=== PATIENT | female | born 1980 | race Caucasian/White ===

== ENCOUNTER 2021-02-07 07:33 | Outpatient (REF) | payer OTHER, SELFPAY ==
[2021-02-07 11:20] LABS: MANUAL DIFF FLAG NO
[2021-02-07 11:27] LABS: Basophils Percent Auto 0.5 % (0-2); Eosinophils Absolute Auto 0.1 X10*3/uL (0.0-0.4); Eosinophils Percent Auto 1.4 % (0-4); Hematocrit 42.2 % (37-47); Hemoglobin 13.8 g/dl (12.0-16.0); Imm Gran Abs Auto 0.02 X10*3/uL (0.00-0.03); Imm Gran Pct Auto 0.3 % (0.0-0.4); Lymphocytes Absolute Auto 1.9 X10*3/uL (1.2-4.9); Lymphocytes Percent Auto 23.7 % (20-40); Mean Corpuscular HGB Conc 32.7 g/dl (31.0-35.0); Mean Corpuscular Hemoglobin 30.2 pg (27.0-33.0); Mean Corpuscular Volume 92.3 fL (80-98); Mean Platelet Volume 10.5 fL (9.4-12.3); Monocytes Absolute Auto 0.5 X10*3/uL (0.1-1.2); Monocytes Percent Auto 6.5 % (2-11); Neutrophils Absolute Auto 5.3 X10*3/uL (2.0-8.3); Neutrophils Percent Auto 67.6 % (45-73); Platelet Count 243 X10*3/uL (160-400); Red Blood Count 4.57 X10*6/uL (4.20-5.50); Red Cell Distribution Width 12.4 % (11.0-16.0); White Blood Count 7.8 X10*3/uL (4.8-10.8)
[2021-02-07 11:52] LABS: Alanine Aminotransferase 13 U/L (0-31); Albumin Level 4.1 g/dL (3.5-5.0); Alkaline Phosphatase 93 U/L (39-117); Anion Gap 12 (12-20); Aspartate Amino Transferase 15 U/L (5-31); Blood Urea Nitrogen 13 mg/dL (9-16); Calcium 8.5 mg/dL (8.4-10.2); Carbon Dioxide 28 mmol/L (22-29); Chloride 106 mmol/L (96-108); Estimated Glomerular Filt Rate > 60; Glucose Random 100 mg/dL (60-115); Sodium 142 mmol/L (135-145); Total Protein 6.7 g/dL (6.5-8.0)
[2021-02-07 12:01] LABS: TSH reflex Free T4 1.59 uIU/mL (0.32-4.0)
[2021-02-07 12:10] LABS: Vitamin B12 335 pg/mL (200-900)
[2021-02-07 12:14] LABS: Bilirubin Total 0.4 mg/dL (0.0-1.0)
[2021-02-09 08:02] LABS: SARS COV2 IgG Positive (Negative)
[2021-02-11 12:07] LABS: Vitamin D 25-OH, D2 <4 ng/mL; Vitamin D 25-OH, D3 32 ng/mL; Vitamin D 25-OH, Total 32 ng/mL (30-100)
== END 2021-02-07 07:34 | disposition home or self-care (01) ==
LOC: HO.HMGCLDS 07:33
PROVIDERS: PCP Internal Medicine; Visit Provider Internal Medicine
DX: G89.29 Other chronic pain (principal); M54.5 Low back pain; F33.9 Major depressive disorder, recurrent, unspecified; F41.1 Generalized anxiety disorder; R53.83 Other fatigue; R14.0 Abdominal distension (gaseous); R43.9 Unspecified disturbances of smell and taste; Z01.84 Encounter for antibody response examination
CPT/HCPCS: 36415; 80053; 82306; 82607; 84443; 85025; 86769

== ENCOUNTER 2021-03-19 13:13 | Outpatient (REF) | payer OTHER, SELFPAY ==
[2021-03-19 14:35] LABS: T4 Thyroxine 7.7 ug/dL (4.5-12.0); Thyroid Stimulating Hormone 1.54 uIU/mL (0.32-4.0)
[2021-03-19 14:50] LABS: Erythrocyte Sedimentation Rate 7 MM/HR (0-20)
[2021-03-19 15:01] LABS: Folate 14.7 ng/mL (> or = 4.0); Vitamin B12 367 pg/mL (200-900)
[2021-03-20 08:57] LABS: Lyme Abs Screen <0.90 index
== END 2021-03-19 13:14 | disposition home or self-care (01) ==
LOC: HO.LAB 13:13
PROVIDERS: PCP Internal Medicine; Visit Provider Psychiatry & Neurology Neurology
DX: R41.3 Other amnesia (principal)
CPT/HCPCS: 36415; 82607; 82746; 84436; 84443; 85652; 86617; 86618

== ENCOUNTER 2021-03-26 18:57 | Outpatient (REF) | payer OTHER, SELFPAY ==
--- NOTE | ~2021-03-26 | MR_ITS ---
EXAMINATION: MRI OF THE BRAIN WITHOUT CONTRAST CLINICAL INFORMATION: Memory loss. COMPARISON: No prior studies available for comparison. TECHNIQUE: MRI of the brain was obtained using routine sequences without contrast. FINDINGS: No diffusion abnormalities are identified to suggest an acute or subacute infarct. No mass effect or midline shift is seen. The ventricles are normal in size. Brain parenchymal signal is unremarkable. No extra-axial fluid collections are seen. The brainstem and cerebellum are normal; the position and contour of the pituitary tonsils are normal. No pathologic magnetic susceptibility artifact is identified on the gradient refocused acquisition. The craniovertebral junction and marrow signal are normal. There is a partially empty sella. The major intracranial flow-voids at the level of the [place] are preserved. The dural venous sinus flow-voids are maintained. The mastoid air cells are well-aerated. There is mild mucoperiosteal thickening in the inferior left maxillary and bilateral anterior ethmoid sinuses. MR/MR head/brain wo con IMPRESSION: 1. There are no acute lesions or infarcts. No masses are demonstrated. Brain parenchymal signal is unremarkable.
== END 2021-03-26 18:58 | disposition home or self-care (01) ==
LOC: HO.MRI 18:57
PROVIDERS: Visit Provider Psychiatry & Neurology Neurology
DX: R41.3 Other amnesia (principal)
CPT/HCPCS: 70551

== ENCOUNTER 2022-01-17 13:24 | Outpatient (REF) | payer OTHER, SELFPAY ==
[2022-01-17 15:15] LABS: MANUAL DIFF FLAG NO
[2022-01-17 15:20] LABS: Basophils Percent Auto 0.5 % (0-2); Eosinophils Absolute Auto 0.1 X10*3/uL (0.0-0.4); Eosinophils Percent Auto 1.2 % (0-4); Hematocrit 41.7 % (37.0-47.0); Hemoglobin 13.8 g/dl (12.0-16.0); Imm Gran Abs Auto 0.03 X10*3/uL (0.00-0.03); Imm Gran Pct Auto 0.4 % (0.0-0.4); Lymphocytes Absolute Auto 1.6 X10*3/uL (1.2-4.9); Lymphocytes Percent Auto 21.4 % (20-40); Mean Corpuscular HGB Conc 33.1 g/dl (31.0-35.0); Mean Corpuscular Hemoglobin 30.3 pg (27.0-33.0); Mean Corpuscular Volume 91.4 fL (80.0-98.0); Mean Platelet Volume 9.9 fL (9.4-12.3); Monocytes Absolute Auto 0.5 X10*3/uL (0.1-1.2); Neutrophils Absolute Auto 5.3 x10*3/uL (2.0-8.3); Neutrophils Percent Auto 69.5 % (45-73); Platelet Count 315 X10*3/uL (160-400); Red Blood Count 4.56 X10*6/uL (4.20-5.50); Red Cell Distribution Width 12.8 % (11.0-16.0); White Blood Count 7.6 X10*3/uL (4.8-10.8)
[2022-01-17 15:36] LABS: Alanine Aminotransferase 17 U/L (0-31); Alkaline Phosphatase 96 U/L (39-117); Anion Gap 13 (12-20); Aspartate Amino Transferase 14 U/L (5-31); Bilirubin Total 0.4 mg/dL (0.0-1.0); Blood Urea Nitrogen 11 mg/dL (9-16); Calcium 8.9 mg/dL (8.4-10.2); Carbon Dioxide 26 mmol/L (22-29); Chloride 106 mmol/L (96-108); Estimated Glomerular Filt Rate > 60; Glucose Random 84 mg/dL (60-115); Potassium 4.5 mmol/L (3.3-5.1); Sodium 140 mmol/L (135-145); Total Protein 6.8 g/dL (6.5-8.0)
[2022-01-17 15:57] LABS: TSH reflex Free T4 1.58 uIU/mL (0.32-4.0)
[2022-01-19 12:16] LABS: LDL Cholesterol Direct 90 mg/dL (<100)
== END 2022-01-17 13:25 | disposition home or self-care (01) ==
LOC: HO.HMGCLDS 13:24
PROVIDERS: PCP Internal Medicine; Visit Provider Internal Medicine
DX: F41.1 Generalized anxiety disorder (principal); F33.9 Major depressive disorder, recurrent, unspecified; G89.29 Other chronic pain; M54.50 Low back pain, unspecified; Z91.09 Other allergy status, other than to drugs and biological substances
CPT/HCPCS: 36415; 80053; 83721; 84443; 85025

== ENCOUNTER 2022-08-12 12:15 | Outpatient (REF) | payer OTHER, SELFPAY ==
[2022-08-12 14:54] LABS: Influenza A PCR NEGATIVE (Negative); Influenza B PCR NEGATIVE (Negative); Resp Syncy Virus RNA Qual PCR NEGATIVE (Negative); SARS COV2 PCR INHOUSE NEGATIVE (Negative)
== END 2022-08-12 12:16 | disposition home or self-care (01) ==
LOC: HO.LAB 12:15
PROVIDERS: Visit Provider Nurse Practitioner Family
DX: Z20.822 Contact with and (suspected) exposure to COVID-19 (principal); R52 Pain, unspecified; R50.9 Fever, unspecified
CPT/HCPCS: 0241U

== ENCOUNTER 2023-04-14 09:54 | Outpatient (REF) | payer OTHER, SELFPAY ==
[2023-04-14 11:14] LABS: MANUAL DIFF FLAG NO
[2023-04-14 11:21] LABS: Basophils Percent Auto 0.4 % (0-2); Eosinophils Absolute Auto 0.1 X10*3/uL (0.0-0.4); Eosinophils Percent Auto 1.4 % (0-4); Hematocrit 44.2 % (37.0-47.0); Hemoglobin 14.6 g/dl (12.0-16.0); Imm Gran Abs Auto 0.02 X10*3/uL (0.00-0.03); Imm Gran Pct Auto 0.2 % (0.0-0.4); Lymphocytes Absolute Auto 1.9 X10*3/uL (1.2-4.9); Lymphocytes Percent Auto 23.1 % (20-40); Mean Corpuscular Hemoglobin 29.7 pg (27.0-33.0); Mean Platelet Volume 10.1 fL (9.4-12.3); Monocytes Absolute Auto 0.5 X10*3/uL (0.1-1.2); Monocytes Percent Auto 5.5 % (2-11); Neutrophils Absolute Auto 5.8 x10*3/uL (2.0-8.3); Neutrophils Percent Auto 69.4 % (45-73); Platelet Count 322 X10*3/uL (160-400); Red Blood Count 4.91 X10*6/uL (4.20-5.50); Red Cell Distribution Width 12.7 % (11.0-16.0); White Blood Count 8.4 X10*3/uL (4.8-10.8)
[2023-04-14 12:05] LABS: Alanine Aminotransferase 19 U/L (0-31); Albumin Level 4.2 g/dL (3.5-5.0); Alkaline Phosphatase 99 U/L (39-117); Anion Gap 14 (12-20); Aspartate Amino Transferase 16 U/L (5-31); Bilirubin Total 0.5 mg/dL (0.0-1.0); Blood Urea Nitrogen 11 mg/dL (9-16); Calcium 9.5 mg/dL (8.4-10.2); Carbon Dioxide 28 mmol/L (22-29); Chloride 106 mmol/L (96-108); Cholesterol 147 mg/dL; Estimated Glomerular Filt Rate > 60; Glucose Fasting 84 mg/dL (60-99); HDL Cholesterol 43 mg/dL; LDL Cholesterol Calculated 87 mg/dl; Potassium 4.2 mmol/L (3.3-5.1); Sodium 144 mmol/L (135-145); Total Protein 7.3 g/dL (6.5-8.0); Triglycerides 89 mg/dL
[2023-04-19 15:13] LABS: Vitamin D 25-OH, D2 <4 ng/mL; Vitamin D 25-OH, D3 32 ng/mL; Vitamin D 25-OH, Total 32 ng/mL (30-100)
== END 2023-04-14 09:55 | disposition home or self-care (01) ==
LOC: HO.HMGCLDS 09:54
PROVIDERS: PCP Internal Medicine; Visit Provider Internal Medicine
DX: E66.09 Other obesity due to excess calories (principal); F33.9 Major depressive disorder, recurrent, unspecified; F41.1 Generalized anxiety disorder; M54.50 Low back pain, unspecified; G89.29 Other chronic pain; M79.7 Fibromyalgia; Z91.09 Other allergy status, other than to drugs and biological substances
CPT/HCPCS: 36415; 80053; 80061; 82306; 85025

== ENCOUNTER 2023-08-25 15:34 | Outpatient (AMB) | payer OTHER, SELFPAY ==
[2023-08-25 15:38] VITALS: BP 150/88; PULSE 80; O2SAT 98; BMI 34.9
--- NOTE | 2023-08-25 15:38 | MHC.PC.OV ---
Vital Signs 08/25/23 15:38 Height 5 ft 5 in Weight 210 lb BMI 34.9 BP 150/88 H Blood Pressure Location Rt brachial Position Sitting Pulse 80 Pulse Source Pulse Oximeter Pulse Oximetry (%) 98 Oxygen Delivery Method Room Air Intake Visit Reasons: 4 Month follow up ( Labs) Allergies No Known Allergies Allergy (Verified 08/25/23 15:39) Medication List - Last Reconciled 08/25/23 by Carter Roblero MD amitriptyline 25 mg PO DAILY bupropion HCl 150 mg PO QAM 90 days buspirone 5 mg PO TID PRN 90 days cyclobenzaprine 5 mg PO BEDTIME escitalopram oxalate 20 mg PO DAILY 90 days glycopyrrolate 1 - 2 mg PO Q8H PRN loratadine (Claritin) 10 mg PO DAILY PRN multivitamin (Daily Multi-Vitamin tablet) 1 tab PO DAILY norethindrone-e.estradiol-iron 1.5 mg-30 mcg ()/75 mg (7) ( 1.5 ()) 1 tab PO DAILY Tobacco use date assessed: 08/25/23 Dental Screening Dental Screen Date: 08/25/23 Did you have a dental visit in the last 12 months?: Yes Did you have a dental problem in the last 6 months where you did not have access to dental care?: No Was dental information given to patient?: Patient has dentist HPI 4 Month follow up ( Labs) HPI Details Patient is a 42-year-old female came in today for her regular follow-up appointment Patient is complaining of chronic fatigue which has gotten worse for the past 2 months Patient says that she feels tired and can easily fall asleep in the middle of the day. She is not sure if she snores at night Patient does have obesity with BMI of 34.9 I have ordered home sleep study to rule out sleep apnea Patient is seeing Dr. Richards for fibromyalgia treatment and is taking amitriptyline 25 mg from his office Headaches are stable Patient have chronic lower back pain which comes and goes she is on muscle relaxers as needed Depression and anxiety is stable patient is on Wellbutrin 150 mg, Lexapro 20 mg and BuSpar 5 mg b.i.d. I have placed another set of labs since she is feeling so tired and fatigue all the time Also her blood pressure is 150/88 patient is blaming stress for that She said she has a blood pressure monitor at home patient is to start monitoring her blood pressure at home and bring the log along at her physical exam appointment in November [facility] Medical History Chronic lower back pain Depression, major, recurrent Anxiety, generalized Family History Father HTN (hypertension) Diabetes mellitus Mother HTN (hypertension) Mental health disorder Maternal Grandmother Mental health disorder Social History Housing: House Patient Tobacco Use Status: Never used Tobacco e-Cigarette/Vaping Use: Never Used Current occupational status: employed Cognitive needs: No Hearing needs: No Vision needs: Yes (contacts) Questionnaire PHQ-9 Over the last 2 weeks, how often have you been bothered by any of the following problems? 1. Little interest or pleasure in doing things: several days 2. Feeling down, depressed, or hopeless: several days 3. Trouble falling or staying asleep, or sleeping too much: nearly every day 4. Feeling tired or having little energy: nearly every day 5. Poor appetite or overeating: not at all 6. Feeling bad about yourself - or that you are a failure or have let yourself or your family down: not at all 7. Trouble concentrating on things, such as reading the newspaper or watching television: more than half the days 8. Moving or speaking so slowly that other people could have noticed. Or the opposite - being so fidgety or restless that you have been moving around a lot more than usual: not at all 9. Thoughts that you would be better off or of hurting yourself in some way: not at all Total score: 10 Depression Screening Interpretation: Positive Depression Screening Done: Yes [id number] - PHQ-9 Billing: Yes Source: Developed by Drs. Lexa Bermudez, Neeru Ratliff, Blaine Agiulera and colleagues, with an educational mohit from [employer]. Thrive Questionnaire Date Thrive assessed: 12/02/22 AUDIT C Alcohol Use Questionnaire (AUDIT-C) 1. How often do you have a drink containing alcohol?: Never 3. How often do you have six or more drinks on one occasion?: Never Total Score: 0 Score Reviewed/Action Taken: Yes ZANE-7 AMB Questionnaire ZANE-7 Date ZANE - 7 assessed: 12/02/22 Source: Developed by Drs. Lexa Bermudez, Neeru Ratliff, Blaine Aguilera and colleagues, with an educational mohit from [employer]. Review of Systems Const Denies chills and Denies fever(s) ENT Denies epistaxis and Denies nasal discharge Card Denies chest pain Resp Denies chest congestion, Denies cough and Denies hemoptysis GI Denies diarrhea and Denies nausea Skin/Breast Denies rash Neuro Reports no additional complaints Psych Reports no additional complaints Endo Reports no additional complaints Physical exam (Primary Care) Vital Signs: Last Vital Signs Pulse 80 08/25/23 15:38 BP 150/88 H 08/25/23 15:38 Pulse Ox 98 08/25/23 15:38 Oxygen Delivery Method Room Air 08/25/23 15:38 BMI result Body Mass Index 34.9 Tobacco/Smoking Status: Tobacco use Status Tobacco use date assessed 08/25/23 08/25/23 15:41 Patient Tobacco Use Status Never used Tobacco 08/25/23 15:41 e-Cigarette/Vaping Use Never Used 08/25/23 15:41 Depression Screening Interpretation: Positive Thrive Assessment: Date of Thrive Assessment Date Thrive assessed 12/02/22 08/25/23 15:41 Const General: cooperative, comfortable and no acute distress Orientation/consciousness: patient oriented x3 HENMT Head: Yes normocephalic Eyes General: appearance normal, both eyes and all related structures Neck Neck: Yes supple Resp Effort & Inspection: normal respiratory effort, no cough and no stridor Cardio Rhythm: regular rhythm Heart sounds: S1 normal heart sound present and S2 normal heart sound present Skin General skin exam: turgor normal Neuro General: patient oriented x3, tone normal and moves all extremities Extrem Right lower extremity: no edema Left lower extremity: no edema Assessment and Plan Assessment & Plan (1) Fatigue: Code(s): R53.83 - Other fatigue Qualifiers: Fatigue type: chronic, unspecified Qualified Code(s): R53.82 - Chronic fatigue, unspecified (2) Tired: Code(s): R53.83 - Other fatigue (3) Daytime somnolence: Code(s): R40.0 - Somnolence (4) Depression, major, recurrent: Code(s): F33.9 - Major depressive disorder, recurrent, unspecified Qualifiers: Active/Remission status: in partial remission Qualified Code(s): F33.41 - Major depressive disorder, recurrent, in partial remission (5) Anxiety, generalized: Code(s): F41.1 - Generalized anxiety disorder (6) Chronic lower back pain: Code(s): M54.5 - Low back pain; G89.29 - Other chronic pain Qualifiers: Back pain laterality: bilateral Sciatica presence: without sciatica Qualified Code(s): M54.50 - Low back pain, unspecified; G89.29 - Other chronic pain (7) Environmental allergies: Code(s): Z91.09 - Other allergy status, other than to drugs and biological substances (8) Obesity due to excess calories: Code(s): E66.09 - Other obesity due to excess calories Qualifiers: Obesity classification: adult class 1 (BMI 30 - 34.9) Serious obesity comorbidity presence: without serious comorbidity Body mass index: BMI 34.0-34.9 Qualified Code(s): E66.09 - Other obesity due to excess calories; Z68.34 - Body mass index [BMI] 34.0-34.9, adult (9) Fibromyalgia: Code(s): M79.7 - Fibromyalgia (10) Headache syndrome: Code(s): G44.89 - Other headache syndrome (11) Elevated blood pressure reading: Code(s): R03.0 - Elevated blood-pressure reading, without diagnosis of hypertension Plan Patient is a 42-year-old female came in today for her regular follow-up appointment Patient is complaining of chronic fatigue which has gotten worse for the past 2 months Patient says that she feels tired and can easily fall asleep in the middle of the day. She is not sure if she snores at night Patient does have obesity with BMI of 34.9 I have ordered home sleep study to rule out sleep apnea Patient is seeing Dr. Richards for fibromyalgia treatment and is taking amitriptyline 25 mg from his office Headaches are stable Patient have chronic lower back pain which comes and goes she is on muscle relaxers as needed Depression and anxiety is stable patient is on Wellbutrin 150 mg, Lexapro 20 mg and BuSpar 5 mg b.i.d. I have placed another set of labs since she is feeling so tired and fatigue all the time Also her blood pressure is 150/88 patient is blaming stress for that She said she has a blood pressure monitor at home patient is to start monitoring her blood pressure at home and bring the log along at her physical exam appointment in November Orders: Orders Comprehensive [place]. Panel Fast Today E66.09 - Other obesity due to excess calories, F33.9 - Major depressive disorder, recurrent, unspecified, F41.1 - Generalized anxiety disorder, G89.29 - Other chronic pain, M54.5 - Low back pain, M79.7 - Fibromyalgia, R40.0 - Somnolence, R53.83 - Other fatigue, Z91.09 - Other allergy status, other than to drugs and biological substances TSH reflex Free T4 Today E66.09 - Other obesity due to excess calories, F33.9 - Major depressive disorder, recurrent, unspecified, F41.1 - Generalized anxiety disorder, G89.29 - Other chronic pain, M54.5 - Low back pain, M79.7 - Fibromyalgia, R40.0 - Somnolence, R53.83 - Other fatigue, Z91.09 - Other allergy status, other than to drugs and biological substances Vitamin B12 Today E66.09 - Other obesity due to excess calories, F33.9 - Major depressive disorder, recurrent, unspecified, F41.1 - Generalized anxiety disorder, G89.29 - Other chronic pain, M54.5 - Low back pain, M79.7 - Fibromyalgia, R40.0 - Somnolence, R53.83 - Other fatigue, Z91.09 - Other allergy status, other than to drugs and biological substances Vitamin D 25-OH (D2 and D3) Today E66.09 - Other obesity due to excess calories, F33.9 - Major depressive disorder, recurrent, unspecified, F41.1 - Generalized anxiety disorder, G89.29 - Other chronic pain, M54.5 - Low back pain, M79.7 - Fibromyalgia, R40.0 - Somnolence, R53.83 - Other fatigue, Z91.09 - Other allergy status, other than to drugs and biological substances RT home sleep study Today R40.0 - Somnolence, R53.83 - Other fatigue Complete Blood Count Auto Diff Today E66.09 - Other obesity due to excess calories, F33.9 - Major depressive disorder, recurrent, unspecified, F41.1 - Generalized anxiety disorder, G89.29 - Other chronic pain, M54.5 - Low back pain, M79.7 - Fibromyalgia, R40.0 - Somnolence, R53.83 - Other fatigue, Z91.09 - Other allergy status, other than to drugs and biological substances Lipid Panel Today E66.09 - Other obesity due to excess calories, F33.9 - Major depressive disorder, recurrent, unspecified, F41.1 - Generalized anxiety disorder, G89.29 - Other chronic pain, M54.5 - Low back pain, M79.7 - Fibromyalgia, R40.0 - Somnolence, R53.83 - Other fatigue, Z91.09 - Other allergy status, other than to drugs and biological substances Zinc Today E66.09 - Other obesity due to excess calories, F33.9 - Major depressive disorder, recurrent, unspecified, F41.1 - Generalized anxiety disorder, G89.29 - Other chronic pain, M54.5 - Low back pain, M79.7 - Fibromyalgia, R40.0 - Somnolence, R53.83 - Other fatigue, Z91.09 - Other allergy status, other than to drugs and biological substances Ferritin Today E66.09 - Other obesity due to excess calories, F33.9 - Major depressive disorder, recurrent, unspecified, F41.1 - Generalized anxiety disorder, G89.29 - Other chronic pain, M54.5 - Low back pain, M79.7 - Fibromyalgia, R40.0 - Somnolence, R53.83 - Other fatigue, Z91.09 - Other allergy status, other than to drugs and biological substances Magnesium Today E66.09 - Other obesity due to excess calories, F33.9 - Major depressive disorder, recurrent, unspecified, F41.1 - Generalized anxiety disorder, G89.29 - Other chronic pain, M54.5 - Low back pain, M79.7 - Fibromyalgia, R40.0 - Somnolence, R53.83 - Other fatigue, Z91.09 - Other allergy status, other than to drugs and biological substances Coding Level of Care Code Est Pt Level 4 (51633) Diagnoses Chronic fatigue R53.82 Fatigue type: chronic, unspecified Tired R53.83 Daytime somnolence R40.0 Recurrent major depressive disorder, in partial remission F33.41 Active/Remission status: in partial remission Anxiety, generalized F41.1 Chronic bilateral low back pain without sciatica M54.50; G89.29 Back pain laterality: bilateral Sciatica presence: without sciatica Environmental allergies Z91.09 Class 1 obesity due to excess calories without serious comorbidity with body mass index (BMI) of 34.0 to 34.9 in adult E66.09; Z68.34 Obesity classification: adult class 1 (BMI 30 - 34.9) Serious obesity comorbidity presence: without serious comorbidity Body mass index: BMI 34.0-34.9 Fibromyalgia M79.7 Headache syndrome G44.89 Elevated blood pressure reading R03.0
== END 2023-08-25 16:48 | disposition home or self-care (01) ==
PROVIDERS: PCP Internal Medicine; Visit Provider Internal Medicine
DX: R53.82 Chronic fatigue, unspecified (principal); R53.83 Other fatigue; R40.0 Somnolence; F33.41 Major depressive disorder, recurrent, in partial remission; F41.1 Generalized anxiety disorder; M54.50 Low back pain, unspecified; G89.29 Other chronic pain; Z91.09 Other allergy status, other than to drugs and biological substances; E66.09 Other obesity due to excess calories; Z68.34 Body mass index [BMI] 34.0-34.9, adult; M79.7 Fibromyalgia; G44.89 Other headache syndrome; R03.0 Elevated blood-pressure reading, without diagnosis of hypertension
CPT/HCPCS: 99214

== ENCOUNTER 2023-08-31 16:02 | Outpatient (AMB) | payer OTHER, SELFPAY ==
[2023-08-31 16:05] VITALS: BP 138/82; PULSE 86; O2SAT 99; BMI 34.9
--- NOTE | 2023-08-31 16:05 | A.OFFPC_ITS ---
Vital Signs 08/31/23 16:05 Height 5 ft 5 in Weight 210 lb BMI 34.9 BP 138/82 Blood Pressure Location Lt brachial Position Sitting Pulse 86 Pulse Source Pulse Oximeter Pulse Oximetry (%) 99 Oxygen Delivery Method Room Air Intake Visit Reasons: high BP Allergies No Known Allergies Allergy (Verified 08/25/23 15:39) Medication List - Last Reconciled 08/31/23 by Carter Roblero MD amitriptyline 25 mg PO DAILY bupropion HCl 150 mg PO QAM 90 days buspirone 5 mg PO TID PRN 90 days cyclobenzaprine 5 mg PO BEDTIME escitalopram oxalate 20 mg PO DAILY 90 days glycopyrrolate 1 - 2 mg PO Q8H PRN loratadine (Claritin) 10 mg PO DAILY PRN multivitamin (Daily Multi-Vitamin tablet) 1 tab PO DAILY norethindrone-e.estradiol-iron 1.5 mg-30 mcg ()/75 mg (7) ( ()) 1 tab PO DAILY Tobacco use date assessed: 08/31/23 Dental Screening Dental Screen Date: 08/31/23 Did you have a dental visit in the last 12 months?: Yes Did you have a dental problem in the last 6 months where you did not have access to dental care?: No Was dental information given to patient?: Patient has dentist HPI high BP HPI Details Patient is a 42-year-old female came in today to have her blood pressure checked Her blood pressure was elevated August 25 at 150/88 Her blood pressure has been running in high 130s at home as well Patient suffer from migraine headache 3 times a week I am starting her on atenolol 25 mg that will help her with the blood pressure as well as migraine headaches. Lab order is in the system patient will do that as soon as she can She has a follow-up appointment in November [facility] Medical History Chronic lower back pain Depression, major, recurrent Anxiety, generalized Family History Father HTN (hypertension) Diabetes mellitus Mother HTN (hypertension) Mental health disorder Maternal Grandmother Mental health disorder Social History Housing: House Patient Tobacco Use Status: Never used Tobacco e-Cigarette/Vaping Use: Never Used Current occupational status: employed Cognitive needs: No Hearing needs: No Vision needs: Yes (contacts) Questionnaire Thrive Questionnaire Date Thrive assessed: 12/02/22 ZANE-7 AMB Questionnaire ZANE-7 Date ZANE - 7 assessed: 12/02/22 Source: Developed by Drs. Lexa Bermudez, Neeru Ratliff, Blaine Aguilera and colleagues, with an educational mohit from [employer]. Review of Systems Const Denies chills and Denies fever(s) ENT Denies epistaxis and Denies nasal discharge Card Denies chest pain Resp Denies chest congestion, Denies cough and Denies hemoptysis GI Denies diarrhea and Denies nausea Skin/Breast Denies rash Neuro Reports no additional complaints Psych Reports no additional complaints Endo Reports no additional complaints Physical exam (Primary Care) BMI result Body Mass Index 34.9 Tobacco/Smoking Status: Tobacco use Status Tobacco use date assessed 08/25/23 08/25/23 15:41 Patient Tobacco Use Status Never used Tobacco 08/25/23 15:41 e-Cigarette/Vaping Use Never Used 08/25/23 15:41 Thrive Assessment: Date of Thrive Assessment Date Thrive assessed 12/02/22 08/25/23 15:41 Const General: cooperative, comfortable and no acute distress Orientation/consciousness: patient oriented x3 HENMT Head: Yes normocephalic Eyes General: appearance normal, both eyes and all related structures Neck Neck: Yes supple Resp Effort & Inspection: normal respiratory effort, no cough and no stridor Cardio Rhythm: regular rhythm Heart sounds: S1 normal heart sound present and S2 normal heart sound present Skin General skin exam: turgor normal Neuro General: patient oriented x3, tone normal and moves all extremities Extrem Right lower extremity: no edema Left lower extremity: no edema Assessment and Plan Assessment & Plan (1) Hypertension, essential: Code(s): I10 - Essential (primary) hypertension (2) Headache syndrome: Code(s): G44.89 - Other headache syndrome Plan Patient is a 42-year-old female came in today to have her blood pressure checked Her blood pressure was elevated August 25 at 150/88 Her blood pressure has been running in high 130s at home as well Patient suffer from migraine headache 3 times a week I am starting her on atenolol 25 mg that will help her with the blood pressure as well as migraine headaches. Lab order is in the system patient will do that as soon as she can She has a follow-up appointment in November Medications: New atenolol 25 mg PO DAILY 90 tabs 0RF Coding Level of Care Code Est Pt Level 3 (32527) Diagnoses Hypertension, essential I10 Headache syndrome G44.89
== END 2023-08-31 16:56 | disposition home or self-care (01) ==
LOC: HO.HMGC 16:02
PROVIDERS: PCP Internal Medicine; Visit Provider Internal Medicine
DX: I10 Essential (primary) hypertension (principal); G44.89 Other headache syndrome
CPT/HCPCS: 99213

== ENCOUNTER → 2023-11-18 15:50 | Outpatient (REF) | payer OTHER, SELFPAY | LOC: HO.SL 15:50 | PROVIDERS: PCP Internal Medicine; Visit Provider Internal Medicine | DX: G47.33 Obstructive sleep apnea (adult) (pediatric) (principal); R40.0 Somnolence; R53.83 Other fatigue | CPT/HCPCS: 95806 ==

== ENCOUNTER → 2023-11-18 15:59 | Outpatient (BNV) | payer OTHER, SELFPAY | PROVIDERS: PCP Internal Medicine; Visit Provider Psychiatry & Neurology Neurology | DX: G47.33 Obstructive sleep apnea (adult) (pediatric) (principal) | CPT/HCPCS: 95806 ==

== ENCOUNTER 2023-12-03 10:19 | Outpatient (AMB) | payer OTHER, SELFPAY ==
[2023-12-03 10:24] VITALS: BP 120/82; PULSE 73; TEMP 36.6; O2SAT 97; BMI 35.6
--- NOTE | 2023-12-03 10:24 | AM.OFFWIN_ITS ---
Intake Vital Signs 12/03/23 10:24 Height 5 ft 5 in Weight 214 lb BMI 35.6 BP 120/82 Blood Pressure Location Lt brachial Position Sitting Pulse 73 Pulse Source Pulse Oximeter Temp 97.8 F Temp Source Temporal Artery Scan Pulse Oximetry (%) 97 Oxygen Delivery Method Room Air Intake Visit Reasons: ESt/sinus pressure (lobby masked) Intake Note: pt is here today for sinus pressure started last wednesday Patient Tobacco Use Status: Never used Tobacco Allergies No Known Allergies Allergy (Verified 12/03/23 10:24) Do you need a note to return to daycare/school/sports/work: Yes HPI HPI Comments History of Present Illness Details 43 y/o female who [facility] with c/o Sinus congestion and pressure since Wednesday. Reports mild cough, non- productive. PFSH Medical History Chronic lower back pain Depression, major, recurrent Anxiety, generalized Family History Father HTN (hypertension) Diabetes mellitus Mother HTN (hypertension) Mental health disorder Maternal Grandmother Mental health disorder Social History Housing: House Patient Tobacco Use Status: Never used Tobacco e-Cigarette/Vaping Use: Never Used Current occupational status: employed Cognitive needs: No Hearing needs: No Vision needs: Yes (contacts) Physical Exam Vital Signs: Last Vital Signs Temp 97.8 F 12/03/23 10:24 Pulse 73 12/03/23 10:24 BP 120/82 12/03/23 10:24 Pulse Ox 97 12/03/23 10:24 Oxygen Delivery Method Room Air 12/03/23 10:24 BMI result Body Mass Index 35.6 Const General: no acute distress HEENT Head: Yes normocephalic Ears: external ears normal and TM's normal bilaterally General nose exam: Abnormal mucous membranes and turbinates present boggy and erythematous and Nasal discharge present Face and sinus: Yes sinuses nontender Mouth: moist mucous membranes Throat: Yes posterior oropharynx normal Resp Effort & Inspection: normal respiratory effort Auscultation: clear to auscultation bilaterally Cardio Rate: regular rate Rhythm: regular rhythm Assessment & Plan Assessment & Plan (1) Acute rhinosinusitis: Code(s): J01.90 - Acute sinusitis, unspecified Plan: - OTC cold and sinus relief meds - Nasal saline spray - Cough syrup OTC - Rest and hydrate well. Medications: New benzonatate 200 mg (2 x 100 mg) PO TID 30 caps 0RF azithromycin 500 mg PO DAILY 3 days 3 tabs 0RF J01.90 - Acute sinusitis, unspecified Coding Level of Care Code Est Pt Level 3 (07728) Diagnoses Acute rhinosinusitis J01.90 Time Spent (min) 15
== END 2023-12-03 11:15 | disposition home or self-care (01) ==
PROVIDERS: PCP Internal Medicine; Visit Provider Nurse Practitioner Family
DX: J01.90 Acute sinusitis, unspecified (principal)
CPT/HCPCS: 99213

== ENCOUNTER 2023-12-15 09:47 | Outpatient (REF) | payer OTHER, SELFPAY ==
[2023-12-15 13:16] LABS: MANUAL DIFF FLAG NO
[2023-12-15 13:39] LABS: Basophils Absolute Auto 0.1 X10*3/uL (0.0-0.2); Basophils Percent Auto 0.8 % (0-2); Eosinophils Absolute Auto 0.1 X10*3/uL (0.0-0.4); Eosinophils Percent Auto 1.3 % (0-4); Hematocrit 42.5 % (37.0-47.0); Hemoglobin 14.2 g/dl (12.0-16.0); Imm Gran Abs Auto 0.02 X10*3/uL (0.00-0.03); Imm Gran Pct Auto 0.3 % (0.0-0.4); Lymphocytes Absolute Auto 1.9 X10*3/uL (1.2-4.9); Lymphocytes Percent Auto 23.9 % (20-40); Mean Corpuscular HGB Conc 33.4 g/dl (31.0-35.0); Mean Corpuscular Hemoglobin 30.5 pg (27.0-33.0); Mean Corpuscular Volume 91.4 fL (80.0-98.0); Monocytes Absolute Auto 0.4 X10*3/uL (0.1-1.2); Monocytes Percent Auto 5.4 % (2-11); Neutrophils Absolute Auto 5.4 x10*3/uL (2.0-8.3); Neutrophils Percent Auto 68.3 % (45-73); Platelet Count 331 X10*3/uL (160-400); Red Blood Count 4.65 X10*6/uL (4.20-5.50); Red Cell Distribution Width 13.2 % (11.0-16.0); White Blood Count 7.9 X10*3/uL (4.8-10.8)
[2023-12-15 14:13] LABS: Vitamin B12 473 pg/mL (200-900)
[2023-12-15 14:20] LABS: Alanine Aminotransferase 17 U/L (0-31); Alkaline Phosphatase 89 U/L (39-117); Anion Gap 12 (12-20); Aspartate Amino Transferase 14 U/L (5-31); Bilirubin Total 0.4 mg/dL (0.0-1.0); Blood Urea Nitrogen 11 mg/dL (9-16); Calcium 8.7 mg/dL (8.4-10.2); Carbon Dioxide 26 mmol/L (22-29); Chloride 109 mmol/L (96-108); Cholesterol 161 mg/dL (<200); Estimated Glomerular Filt Rate > 60; Glucose Fasting 92 mg/dL (60-99); HDL Cholesterol 51 mg/dL (>40); LDL Cholesterol Calculated 94 mg/dL (<100); Magnesium 2.1 mg/dL (1.6-2.6); Potassium 4.8 mmol/L (3.3-5.1); Sodium 142 mmol/L (135-145); Triglycerides 82 mg/dL (<150)
[2023-12-15 14:31] LABS: Ferritin 68 ng/mL (10-250); TSH reflex Free T4 1.22 uIU/mL (0.32-4.0)
[2023-12-17 13:38] LABS: Zinc 80 mcg/dL (60-130)
[2023-12-18 15:24] LABS: Vitamin D 25-OH, D2 <4 ng/mL; Vitamin D 25-OH, D3 28 ng/mL; Vitamin D 25-OH, Total 28 ng/mL (30-100)
== END 2023-12-15 09:48 | disposition home or self-care (01) ==
LOC: HO.HMGCLDS 09:47
PROVIDERS: PCP Internal Medicine; Visit Provider Internal Medicine
DX: R53.83 Other fatigue (principal); F41.1 Generalized anxiety disorder; G89.29 Other chronic pain; Z91.09 Other allergy status, other than to drugs and biological substances; E66.09 Other obesity due to excess calories; M79.7 Fibromyalgia; R40.0 Somnolence; M54.50 Low back pain, unspecified
CPT/HCPCS: 36415; 80053; 80061; 82306; 82607; 82728; 83735; 84443; 84630; 85025

== ENCOUNTER 2023-12-17 09:17 | Outpatient (AMB) | payer OTHER, SELFPAY ==
[2023-12-17 09:20] VITALS: BP 122/80; PULSE 67; O2SAT 97; BMI 35.5
--- NOTE | 2023-12-17 09:20 | MHC.PC.OV ---
Vital Signs 12/17/23 09:20 Height 5 ft 5 in Weight 213 lb 2 oz BMI 35.5 BP 122/80 Blood Pressure Location Rt brachial Position Sitting Pulse 67 Pulse Source Pulse Oximeter Pulse Oximetry (%) 97 Oxygen Delivery Method Room Air Intake Visit Reasons: 3mth follow up meds Allergies No Known Allergies Allergy (Verified 12/17/23 09:20) Medication List - Last Reconciled 12/17/23 by Carter Roblero MD amitriptyline 25 mg PO DAILY atenolol 25 mg PO DAILY bupropion HCl 150 mg PO QAM 90 days buspirone 5 mg PO TID PRN 90 days cyclobenzaprine 5 mg PO BEDTIME escitalopram oxalate 20 mg PO DAILY 90 days glycopyrrolate 1 - 2 mg PO Q8H PRN loratadine (Claritin) 10 mg PO DAILY PRN multivitamin (Daily Multi-Vitamin tablet) 1 tab PO DAILY norethindrone-e.estradiol-iron 1.5 mg-30 mcg (21)/75 mg (7) ( 1.5/30 ()) 1 tab PO DAILY Tobacco use date assessed: 12/17/23 Dental Screening Dental Screen Date: 12/17/23 Did you have a dental visit in the last 12 months?: Yes Did you have a dental problem in the last 6 months where you did not have access to dental care?: No Was dental information given to patient?: Patient has dentist HPI 3mth follow up meds HPI Details Patient is a 43-year-old female came in today for her regular follow-up appointment Patient says that she is having difficulty losing weight, she is watching her diet and trying to exercise She agreed to have a referral to metabolic clinic at [facility]. Labs done recently reviewed with the patient all questions answered Patient is seeing Dr. Richards for fibromyalgia treatment and is taking amitriptyline 25 mg from his office Headaches are stable Patient have chronic lower back pain which comes and goes she is on muscle relaxers as needed Depression and anxiety is stable patient is on Wellbutrin 150 mg, Lexapro 20 mg and BuSpar 5 mg b.i.d. Pressure is well controlled Sleep study showed mild sleep apnea and conservative management was recommended [facility] Medical History Chronic lower back pain Depression, major, recurrent Anxiety, generalized Family History Father HTN (hypertension) Diabetes mellitus Mother HTN (hypertension) Mental health disorder Maternal Grandmother Mental health disorder Social History Housing: House Patient Tobacco Use Status: Never used Tobacco e-Cigarette/Vaping Use: Never Used service: No Current occupational status: employed Cognitive needs: No Hearing needs: No Vision needs: Yes (contacts) Questionnaire PHQ-9 Over the last 2 weeks, how often have you been bothered by any of the following problems? 1. Little interest or pleasure in doing things: more than half the days 2. Feeling down, depressed, or hopeless: several days 3. Trouble falling or staying asleep, or sleeping too much: nearly every day 4. Feeling tired or having little energy: nearly every day 5. Poor appetite or overeating: several days 6. Feeling bad about yourself - or that you are a failure or have let yourself or your family down: several days 7. Trouble concentrating on things, such as reading the newspaper or watching television: several days 8. Moving or speaking so slowly that other people could have noticed. Or the opposite - being so fidgety or restless that you have been moving around a lot more than usual: not at all 9. Thoughts that you would be better off or of hurting yourself in some way: not at all Total score: 12 Depression Screening Interpretation: Positive Depression Screening Follow-up: Existing condition and In treatment Depression Screening Done: Yes 32652 - PHQ-9 Billing: Yes Source: Developed by Drs. Lexa Bermudez, Neeru Ratliff, Blaine Aguilera and colleagues, with an educational mohit from [employer]. Thrive Questionnaire Date Thrive assessed: 12/17/23 I am a: Patient What is your living situation today?: I have a steady place to live Within the past 12 months, did the food you bought not last and you didn't have the money to get more?: Never true Within the past 12 months, did you worry whether your food would run out before you got money to buy more?: Never true Do you have trouble paying for medicines?: No Do you have trouble getting transportation to medical appointments?: No Do you have trouble paying your heating and electricity bill?: No Do you have trouble taking care of your child, family member or friend?: No Do you have trouble with day-to-day activities such as bathing, preparing meals, shopping, managing finances, etc.?: No Are you currently unemployed and looking for a job?: No Are you interested in more education?: No Please select the resources that you would like help with: None Currently or been in a relationship where the following occur: no concerns reported THRIVE Score: 0 AUDIT C Alcohol Use Questionnaire (AUDIT-C) 1. How often do you have a drink containing alcohol?: Monthly or less 2. How many drinks containing alcohol do you have on a typical day when you are drinking?: 1 or 2 3. How often do you have six or more drinks on one occasion?: Never Total Score: 1 Score Reviewed/Action Taken: Yes ZANE-7 AMB Questionnaire ZANE-7 Date ZANE - 7 assessed: 12/17/23 Feeling nervous, anxious, or on edge: 2 = More than half the days Not being able to stop or control worryin = More than half the days Worrying too much about different things: 2 = More than half the days Trouble relaxin = More than half the days Being so restless that it is hard to sit still: 1 = Several days Becoming easily annoyed or irritable: 3 = Nearly every day Feeling afraid as if something awful might happen: 1 = Several days Total ZANE-7 score (0-4 normal; 5-9 mild; 10-14 moderate; 15-21 severe): 13 Source: Developed by Drs. Lexa Bermudez, Neeru Ratliff, Blaine Aguilera and colleagues, with an educational mohit from [employer]. ZANE-7 Assessment Billing ZANE-7 Assessment Tool: ZANE-7 Assessment 68710 (In treatment) Review of Systems Const Denies chills and Denies fever(s) ENT Denies epistaxis and Denies nasal discharge Card Denies chest pain Resp Denies chest congestion, Denies cough and Denies hemoptysis GI Denies diarrhea and Denies nausea Skin/Breast Denies rash Neuro Reports no additional complaints Psych Reports no additional complaints Endo Reports no additional complaints Physical exam (Primary Care) Vital Signs: Last Vital Signs Pulse 67 12/17/23 09:20 BP 122/80 12/17/23 09:20 Pulse Ox 97 12/17/23 09:20 Oxygen Delivery Method Room Air 12/17/23 09:20 BMI result Body Mass Index 35.5 Tobacco/Smoking Status: Tobacco use Status Tobacco use date assessed 12/17/23 12/17/23 09:28 Patient Tobacco Use Status Never used Tobacco 12/17/23 09:28 e-Cigarette/Vaping Use Never Used 12/17/23 09:28 PHQ-9: PHQ-9 Score PHQ-9: Total score 12 12/17/23 09:41 Depression Screening Interpretation: Positive Depression Screening Follow-up: Existing condition and In treatment Thrive Assessment: Date of Thrive Assessment Date Thrive assessed 12/17/23 12/17/23 09:28 Currently or been in a relationship where the following occur: no concerns reported Const General: cooperative, comfortable and no acute distress Orientation/consciousness: patient oriented x3 HENMT Head: Yes normocephalic Eyes General: appearance normal, both eyes and all related structures Neck Neck: Yes supple Resp Effort & Inspection: normal respiratory effort, no cough and no stridor Cardio Rhythm: regular rhythm Heart sounds: S1 normal heart sound present and S2 normal heart sound present Skin General skin exam: turgor normal Neuro General: patient oriented x3, tone normal and moves all extremities Extrem Right lower extremity: no edema Left lower extremity: no edema Assessment and Plan Assessment & Plan (1) Hypertension, essential: Code(s): I10 - Essential (primary) hypertension (2) Headache syndrome: Code(s): G44.89 - Other headache syndrome (3) Anxiety, generalized: Code(s): F41.1 - Generalized anxiety disorder (4) Depression, major, recurrent: Code(s): F33.9 - Major depressive disorder, recurrent, unspecified Qualifiers: Active/Remission status: in partial remission Qualified Code(s): F33.41 - Major depressive disorder, recurrent, in partial remission (5) Chronic lower back pain: Code(s): M54.5 - Low back pain; G89.29 - Other chronic pain Qualifiers: Back pain laterality: bilateral Sciatica presence: without sciatica Qualified Code(s): M54.50 - Low back pain, unspecified; G89.29 - Other chronic pain (6) Environmental allergies: Code(s): Z91.09 - Other allergy status, other than to drugs and biological substances (7) Mild sleep apnea: Code(s): G47.30 - Sleep apnea, unspecified (8) Obesity due to excess calories: Code(s): E66.09 - Other obesity due to excess calories Qualifiers: Obesity classification: adult class 2 (BMI 35 - 39.9) Serious obesity comorbidity presence: without serious comorbidity Body mass index: BMI 35.0-35.9 Qualified Code(s): E66.09 - Other obesity due to excess calories; Z68.35 - Body mass index [BMI] 35.0-35.9, adult Plan Patient is a 43-year-old female came in today for her regular follow-up appointment Patient says that she is having difficulty losing weight, she is watching her diet and trying to exercise She agreed to have a referral to metabolic clinic at [facility]. Labs done recently reviewed with the patient all questions answered Patient is seeing Dr. Richards for fibromyalgia treatment and is taking amitriptyline 25 mg from his office Headaches are stable Patient have chronic lower back pain which comes and goes she is on muscle relaxers as needed Depression and anxiety is stable patient is on Wellbutrin 150 mg, Lexapro 20 mg and BuSpar 5 mg b.i.d. Pressure is well controlled Sleep study showed mild sleep apnea and conservative management was recommended Orders: Referrals Metabolic Clinic Referral E66.01 - Morbid (severe) obesity due to excess calories Coding Level of Care Code Est Pt Level 4 (63900) Diagnoses Hypertension, essential I10 Headache syndrome G44.89 Anxiety, generalized F41.1 Recurrent major depressive disorder, in partial remission F33.41 Active/Remission status: in partial remission Chronic bilateral low back pain without sciatica M54.50; G89.29 Back pain laterality: bilateral Sciatica presence: without sciatica Environmental allergies Z91.09 Mild sleep apnea G47.30 Class 2 obesity due to excess calories without serious comorbidity with body mass index (BMI) of 35.0 to 35.9 in adult E66.09; Z68.35 Obesity classification: adult class 2 (BMI 35 - 39.9) Serious obesity comorbidity presence: without serious comorbidity Body mass index: BMI 35.0-35.9 Additional Codes ZANE-7 Assessment Billing - ZANE-7 Assessment Tool: ZANE-7 Assessment 58062 ([id number])
== END 2023-12-17 09:45 | disposition home or self-care (01) ==
PROVIDERS: PCP Internal Medicine; Visit Provider Internal Medicine
DX: I10 Essential (primary) hypertension (principal); F33.41 Major depressive disorder, recurrent, in partial remission; E66.09 Other obesity due to excess calories; Z68.35 Body mass index [BMI] 35.0-35.9, adult; G44.89 Other headache syndrome; F41.1 Generalized anxiety disorder; M54.50 Low back pain, unspecified; G89.29 Other chronic pain; Z91.09 Other allergy status, other than to drugs and biological substances; G47.30 Sleep apnea, unspecified
CPT/HCPCS: 99214

== ENCOUNTER 2024-01-27 08:32 | Outpatient (AMB) | payer OTHER, SELFPAY ==
--- NOTE | 2024-01-27 08:48 | MHC.PC.OV ---
Intake Visit Reasons: discuss weight---[phone] Allergies No Known Allergies Allergy (Verified 01/27/24 08:48) Medication List - Last Reconciled 01/27/24 by Carter Roblero MD amitriptyline 25 mg PO DAILY atenolol 25 mg PO DAILY bupropion HCl XL 150 mg PO QAM 90 days buspirone 5 mg PO TID PRN 90 days cyclobenzaprine 5 mg PO BEDTIME escitalopram oxalate 20 mg PO DAILY 90 days glycopyrrolate 1 - 2 mg PO Q8H PRN loratadine (Claritin) 10 mg PO DAILY PRN multivitamin (Daily Multi-Vitamin tablet) 1 tab PO DAILY norethindrone-e.estradiol-iron 1.5 mg-30 mcg (21)/75 mg (7) ( FE .03/23 ()) 1 tab PO DAILY Tobacco use date assessed: 01/27/24 Dental Screening Dental Screen Date: 01/27/24 Did you have a dental visit in the last 12 months?: Yes Did you have a dental problem in the last 6 months where you did not have access to dental care?: No Was dental information given to patient?: Patient has dentist HPI discuss weight---[phone] HPI Details Patient is 43-year-old female with a BMI of about 35 having difficulty losing weight Patient says that she had our consultation with barnworker groom awhile ago in she knows what to eat and what not to eat and her job is very physically active . Currently she is eating about 7502-7624 calories I would recommend to cut the calories down to around 1500. I have sent phentermine prescription, side effect of medication discussed with the patient including palpitations anxiety And patient was encouraged to read the full side effect profile given by the pharmacy. Patient is aware that she will need to come once a month for medication refill after we evaluate her weight and to rule out any side effects. She had labs done in November reviewed again, medications sent. [facility] Medical History Chronic lower back pain Depression, major, recurrent Anxiety, generalized Family History Father HTN (hypertension) Diabetes mellitus Mother HTN (hypertension) Mental health disorder Maternal Grandmother Mental health disorder Social History Housing: House Patient Tobacco Use Status: Never used Tobacco e-Cigarette/Vaping Use: Never Used service: No Current occupational status: employed Cognitive needs: No Hearing needs: No Vision needs: Yes (contacts) Questionnaire Thrive Questionnaire Date Thrive assessed: 12/17/23 AUDIT C Alcohol Use Questionnaire (AUDIT-C) 1. How often do you have a drink containing alcohol?: Monthly or less 2. How many drinks containing alcohol do you have on a typical day when you are drinking?: 1 or 2 3. How often do you have six or more drinks on one occasion?: Never Total Score: 1 Score Reviewed/Action Taken: Yes ZANE-7 AMB Questionnaire ZANE-7 Date ZANE - 7 assessed: 12/17/23 Source: Developed by Drs. Lexa Bermudez, Neeru Ratliff, Blaine Aguilera and colleagues, with an educational mohit from [employer]. Review of Systems Const Denies chills and Denies fever(s) ENT Denies epistaxis and Denies nasal discharge Card Denies chest pain Resp Denies chest congestion, Denies cough and Denies hemoptysis GI Denies diarrhea and Denies nausea Skin/Breast Denies rash Neuro Reports no additional complaints Psych Reports no additional complaints Endo Reports no additional complaints Physical exam (Primary Care) Tobacco/Smoking Status: Tobacco use Status Tobacco use date assessed 01/27/24 01/27/24 08:49 Patient Tobacco Use Status Never used Tobacco 01/27/24 08:49 e-Cigarette/Vaping Use Never Used 01/27/24 08:49 Thrive Assessment: Date of Thrive Assessment Date Thrive assessed 12/17/23 01/27/24 08:49 Telehealth Telehealth Location of provider rendering services: practice address Location of patient: address on file Patient Identification confirmed using: Name, : Yes Telehealth method: video Patient verbally consented to treatment: Yes Patient verbally consented to billing insurance company: Yes Patient informed of any privacy concerns related to visit: Yes Minutes spent on Phone/Video with Pt.: 14 Assessment and Plan Assessment & Plan (1) Obesity due to excess calories: Code(s): E66.09 - Other obesity due to excess calories Qualifiers: Obesity classification: adult class 2 (BMI 35 - 39.9) Serious obesity comorbidity presence: without serious comorbidity Body mass index: BMI 35.0-35.9 Qualified Code(s): E66.09 - Other obesity due to excess calories; Z68.35 - Body mass index [BMI] 35.0-35.9, adult Plan Patient is 43-year-old female with a BMI of about 35 having difficulty losing weight Patient says that she had our consultation with barnworker groom awhile ago in she knows what to eat and what not to eat and her job is very physically active . Currently she is eating about 5981-7237 calories I would recommend to cut the calories down to around 1500. I have sent phentermine prescription, side effect of medication discussed with the patient including palpitations anxiety And patient was encouraged to read the full side effect profile given by the pharmacy. Patient is aware that she will need to come once a month for medication refill after we evaluate her weight and to rule out any side effects. She had labs done in November reviewed again, medications sent. Medications: New phentermine must administer 2 hours after breakfast 15 mg PO DAILY 30 caps 0RF E66.09 - Other obesity due to excess calories, Z68.35 - Body mass index [BMI] 35.0-35.9, adult Coding Level of Care Code Tele Est Pt Level 3 (06663) Diagnoses Class 2 obesity due to excess calories without serious comorbidity with body mass index (BMI) of 35.0 to 35.9 in adult E66.09; Z68.35 Obesity classification: adult class 2 (BMI 35 - 39.9) Serious obesity comorbidity presence: without serious comorbidity Body mass index: BMI 35.0-35.9
== END 2024-01-27 16:30 | disposition home or self-care (01) ==
LOC: HO.HMGC 08:32
PROVIDERS: PCP Internal Medicine; Visit Provider Internal Medicine
DX: E66.09 Other obesity due to excess calories (principal); Z68.35 Body mass index [BMI] 35.0-35.9, adult
CPT/HCPCS: 99213

== ENCOUNTER 2024-04-11 09:02 | Outpatient (AMB) | payer OTHER, SELFPAY ==
--- NOTE | 2024-04-11 09:01 | MHC.PC.OV ---
Vital Signs 04/11/24 09:02 Height 5 ft 5 in Weight 213 lb 2 oz BMI 35.5 BP 120/80 Blood Pressure Location Lt brachial Position Sitting Pulse 76 Pulse Source Pulse Oximeter Pulse Oximetry (%) 95 Oxygen Delivery Method Room Air Intake Visit Reasons: 4M F/U meds Allergies No Known Allergies Allergy (Verified 04/11/24 09:05) Medication List - Last Reconciled 04/11/24 by Carter Roblero MD amitriptyline 25 mg PO DAILY atenolol 25 mg PO DAILY bupropion HCl XL 150 mg PO QAM 90 days buspirone 5 mg PO TID PRN 90 days cyclobenzaprine 5 mg PO BEDTIME escitalopram oxalate 20 mg PO DAILY 90 days loratadine (Claritin) 10 mg PO DAILY PRN multivitamin (Daily Multi-Vitamin tablet) 1 tab PO DAILY norethindrone-e.estradiol-iron 1.5 mg-30 mcg ()/75 mg (7) ( FE 1.5/30 (28)) 1 tab PO DAILY oxybutynin chloride ER 10 mg PO DAILY phentermine 15 mg PO DAILY Tobacco use date assessed: 04/11/24 Dental Screening Dental Screen Date: 04/11/24 Did you have a dental visit in the last 12 months?: Yes Did you have a dental problem in the last 6 months where you did not have access to dental care?: No Was dental information given to patient?: Patient has dentist HPI 4M F/U meds HPI Details Patient is a 43-year-old female, came in today for weight loss visit Patient was started on phentermine 15 mg, she could not make it to her appointment and ran out of medication has not taken it for 2 weeks Patient has not lost any weight but her weight is stable She tolerated medication well there are no side effects I am increasing the dose to 37.5, patient will return in 4 weeks for follow-up appointment She is already aware of dietary limitation And walking her dog every day [facility] Medical History Chronic lower back pain Depression, major, recurrent Anxiety, generalized Family History Father HTN (hypertension) Diabetes mellitus Mother HTN (hypertension) Mental health disorder Maternal Grandmother Mental health disorder Social History Housing: House Patient Tobacco Use Status: Never used Tobacco e-Cigarette/Vaping Use: Never Used service: No Current occupational status: employed Cognitive needs: No Hearing needs: No Vision needs: Yes (contacts) Questionnaire Thrive Questionnaire Date Thrive assessed: 12/17/23 AUDIT C Alcohol Use Questionnaire (AUDIT-C) 1. How often do you have a drink containing alcohol?: Monthly or less 2. How many drinks containing alcohol do you have on a typical day when you are drinking?: 1 or 2 3. How often do you have six or more drinks on one occasion?: Never Total Score: 1 Score Reviewed/Action Taken: Yes ZANE-7 AMB Questionnaire ZANE-7 Date ZANE - 7 assessed: 12/17/23 Source: Developed by Drs. Lexa Bermudez, Neeru Ratliff, Blaine Aguilera and colleagues, with an educational mohit from [employer]. Review of Systems Const Denies chills and Denies fever(s) ENT Denies epistaxis and Denies nasal discharge Card Denies chest pain Resp Denies chest congestion, Denies cough and Denies hemoptysis GI Denies diarrhea and Denies nausea Skin/Breast Denies rash Neuro Reports no additional complaints Psych Reports no additional complaints Endo Reports no additional complaints Physical exam (Primary Care) Vital Signs: Last Vital Signs Pulse 76 04/11/24 09:02 BP 120/80 04/11/24 09:02 Pulse Ox 95 04/11/24 09:02 Oxygen Delivery Method Room Air 04/11/24 09:02 BMI result Body Mass Index 35.5 Tobacco/Smoking Status: Tobacco use Status Tobacco use date assessed 04/11/24 04/11/24 09:05 Patient Tobacco Use Status Never used Tobacco 04/11/24 09:05 e-Cigarette/Vaping Use Never Used 04/11/24 09:05 Thrive Assessment: Date of Thrive Assessment Date Thrive assessed 12/17/23 04/11/24 09:05 Const General: cooperative, comfortable and no acute distress Orientation/consciousness: patient oriented x3 HENMT Head: Yes normocephalic Eyes General: appearance normal, both eyes and all related structures Neck Neck: Yes supple Resp Effort & Inspection: normal respiratory effort, no cough and no stridor Cardio Rhythm: regular rhythm Heart sounds: S1 normal heart sound present and S2 normal heart sound present Skin General skin exam: turgor normal Neuro General: patient oriented x3, tone normal and moves all extremities Extrem Right lower extremity: no edema Left lower extremity: no edema Assessment and Plan Assessment & Plan (1) Obesity due to excess calories: Code(s): E66.09 - Other obesity due to excess calories Qualifiers: Body mass index: BMI 35.0-35.9 Obesity classification: adult class 2 (BMI 35 - 39.9) Serious obesity comorbidity presence: without serious comorbidity Qualified Code(s): E66.09 - Other obesity due to excess calories; Z68.35 - Body mass index [BMI] 35.0-35.9, adult Plan Patient is a 43-year-old female, came in today for weight loss visit Patient was started on phentermine 15 mg, she could not make it to her appointment and ran out of medication has not taken it for 2 weeks Patient has not lost any weight but her weight is stable She tolerated medication well there are no side effects I am increasing the dose to 37.5, patient will return in 4 weeks for follow-up appointment She is already aware of dietary limitation And walking her dog every day Medications: Changed From phentermine must administer 2 hours after breakfast 15 mg PO DAILY 30 caps 0RF E66.09 - Other obesity due to excess calories, Z68.35 - Body mass index [BMI] 35.0-35.9, adult To phentermine must administer 2 hours after breakfast 37.5 mg PO DAILY 30 caps 0RF 30 days E66.09 - Other obesity due to excess calories, Z68.35 - Body mass index [BMI] 35.0-35.9, adult Coding Level of Care Code Est Pt Level 3 (16429) Diagnoses Class 2 obesity due to excess calories without serious comorbidity with body mass index (BMI) of 35.0 to 35.9 in adult E66.09; Z68.35 Body mass index: BMI 35.0-35.9 Obesity classification: adult class 2 (BMI 35 - 39.9) Serious obesity comorbidity presence: without serious comorbidity
[2024-04-11 09:02] VITALS: BP 120/80; PULSE 76; O2SAT 95; BMI 35.5
== END 2024-04-11 09:11 | disposition home or self-care (01) ==
LOC: HO.HMGC 09:02
PROVIDERS: PCP Internal Medicine; Visit Provider Internal Medicine
DX: E66.09 Other obesity due to excess calories (principal); Z68.35 Body mass index [BMI] 35.0-35.9, adult
CPT/HCPCS: 99213

== ENCOUNTER 2024-05-10 09:38 | Outpatient (AMB) | payer OTHER, SELFPAY ==
[2024-05-10 09:39] VITALS: BP 122/80; PULSE 76; O2SAT 98; BMI 35.1
--- NOTE | 2024-05-10 09:39 | MHC.PC.OV ---
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 Accompanied by: Self / Same As Patient Allergies No Known Allergies Allergy (Verified 04/11/24 09:05) Medication List - Last Reconciled 05/10/24 by Carter Roblero MD amitriptyline 25 mg PO DAILY atenolol 25 mg PO DAILY bupropion HCl XL 150 mg PO QAM 90 days buspirone 5 mg PO TID PRN 90 days cyclobenzaprine 5 mg PO BEDTIME escitalopram oxalate 20 mg PO DAILY 90 days loratadine (Claritin) 10 mg PO DAILY PRN multivitamin (Daily Multi-Vitamin tablet) 1 tab PO DAILY norethindrone-e.estradiol-iron 1.5 mg-30 mcg (21)/75 mg (7) (Junel FE 1.5/30 (28)) 1 tab PO DAILY oxybutynin chloride ER 10 mg PO DAILY phentermine 37.5 mg PO DAILY 30 days Tobacco use date assessed: 04/11/24 Dental Screening Dental Screen Date: 04/11/24 HPI 1M F/U meds HPI Details Patient is a 43-year-old female came in today for her regular follow-up appointment Patient is currently on phentermine 37.5 mg, she was able to lose 2 more lb since last month Have set a new goal losing at least 8 lb in 2 months, she will return in 2 months for follow-up on that now One month medications sent and patient will call me for refill in 1 month Patient is seeing Dr. Richards for fibromyalgia treatment and is taking amitriptyline 25 mg from his office Headaches are stable Patient have chronic lower back pain which comes and goes she is on muscle relaxers as needed Depression and anxiety is stable patient is on Wellbutrin 150 mg, Lexapro 20 mg and BuSpar 5 mg b.i.d. Blood Pressure is well controlled Sleep study showed mild sleep apnea and conservative management was recommended Follow-up 2 months, labs done earlier this year reviewed [facility] Medical History Chronic lower back pain Depression, major, recurrent Anxiety, generalized Surgical History No pertinent past surgical history Family History Father HTN (hypertension) Diabetes mellitus Mother HTN (hypertension) Mental health disorder Maternal Grandmother Mental health disorder Social History Housing: House Patient Tobacco Use Status: Never used Tobacco e-Cigarette/Vaping Use: Never Used service: No Current occupational status: employed Cognitive needs: No Hearing needs: No Vision needs: Yes (contacts) Questionnaire PHQ-9 Over the last 2 weeks, how often have you been bothered by any of the following problems? 1. Little interest or pleasure in doing things: several days 2. Feeling down, depressed, or hopeless: several days 3. Trouble falling or staying asleep, or sleeping too much: more than half the days 4. Feeling tired or having little energy: more than half the days 5. Poor appetite or overeating: not at all 6. Feeling bad about yourself - or that you are a failure or have let yourself or your family down: several days 7. Trouble concentrating on things, such as reading the newspaper or watching television: more than half the days 8. Moving or speaking so slowly that other people could have noticed. Or the opposite - being so fidgety or restless that you have been moving around a lot more than usual: several days 9. Thoughts that you would be better off or of hurting yourself in some way: not at all Total score: 10 Depression Screening Interpretation: Positive Depression Screening Follow-up: Existing condition and In treatment Depression Screening Done: Yes 66473 - PHQ-9 Billing: Yes Source: Developed by Drs. Lexa Bermudez, Neeru Ratliff, Blaine Aguilera and colleagues, with an educational mohit from [employer]. Thrive Questionnaire Date Thrive assessed: 12/17/23 I am a: Patient What is your living situation today?: I have a steady place to live Within the past 12 months, did the food you bought not last and you didn't have the money to get more?: Never true Within the past 12 months, did you worry whether your food would run out before you got money to buy more?: Never true Do you have trouble paying for medicines?: No Do you have trouble getting transportation to medical appointments?: No Do you have trouble paying your heating and electricity bill?: No Do you have trouble taking care of your child, family member or friend?: No Do you have trouble with day-to-day activities such as bathing, preparing meals, shopping, managing finances, etc.?: No Are you currently unemployed and looking for a job?: No Are you interested in more education?: No Please select the resources that you would like help with: Housing/Fpc Currently or been in a relationship where the following occur: I choose not to answer THRIVE Score: 0 AUDIT C Alcohol Use Questionnaire (AUDIT-C) 1. How often do you have a drink containing alcohol?: Monthly or less 2. How many drinks containing alcohol do you have on a typical day when you are drinking?: 1 or 2 3. How often do you have six or more drinks on one occasion?: Never Total Score: 1 Score Reviewed/Action Taken: Yes ZANE-7 AMB Questionnaire ZANE-7 Date ZANE - 7 assessed: 05/10/24 Feeling nervous, anxious, or on edge: 3 = Nearly every day Not being able to stop or control worryin = Nearly every day Worrying too much about different things: 3 = Nearly every day Trouble relaxin = Nearly every day Being so restless that it is hard to sit still: 2 = More than half the days Becoming easily annoyed or irritable: 3 = Nearly every day Feeling afraid as if something awful might happen: 1 = Several days Total ZANE-7 score (0-4 normal; 5-9 mild; 10-14 moderate; 15-21 severe): 18 Source: Developed by Drs. Lexa Bermudez, Neeru Ratliff, Blaine Aguilera and colleagues, with an educational mohit from [employer]. ZANE-7 Assessment Billing ZANE-7 Assessment Tool: ZANE-7 Assessment 54314 Review of Systems Const Denies chills and Denies fever(s) ENT Denies epistaxis and Denies nasal discharge Card Denies chest pain Resp Denies chest congestion, Denies cough and Denies hemoptysis GI Denies diarrhea and Denies nausea Skin/Breast Denies rash Neuro Reports no additional complaints Psych Reports no additional complaints Endo Reports no additional complaints Physical exam (Primary Care) Vital Signs: Last Vital Signs Pulse 76 05/10/24 09:39 BP 122/80 05/10/24 09:39 Pulse Ox 98 05/10/24 09:39 Oxygen Delivery Method Room Air 05/10/24 09:39 BMI result Body Mass Index 35.1 Tobacco/Smoking Status: Tobacco use Status Tobacco use date assessed 04/11/24 05/10/24 09:41 Patient Tobacco Use Status Never used Tobacco 05/10/24 09:41 e-Cigarette/Vaping Use Never Used 05/10/24 09:41 PHQ-9: PHQ-9 Score PHQ-9: Total score 10 05/10/24 10:04 Depression Screening Interpretation: Positive Depression Screening Follow-up: Existing condition and In treatment Thrive Assessment: Date of Thrive Assessment Date Thrive assessed 12/17/23 05/10/24 09:41 Currently or been in a relationship where the following occur: I choose not to answer Const General: cooperative, comfortable and no acute distress Orientation/consciousness: patient oriented x3 HENMT Head: Yes normocephalic Eyes General: appearance normal, both eyes and all related structures Neck Neck: Yes supple Resp Effort & Inspection: normal respiratory effort, no cough and no stridor Cardio Rhythm: regular rhythm Heart sounds: S1 normal heart sound present and S2 normal heart sound present Skin General skin exam: turgor normal Neuro General: patient oriented x3, tone normal and moves all extremities Extrem Right lower extremity: no edema Left lower extremity: no edema Assessment and Plan Assessment & Plan (1) Hypertension, essential: Code(s): I10 - Essential (primary) hypertension (2) Headache syndrome: Code(s): G44.89 - Other headache syndrome (3) Anxiety, generalized: Code(s): F41.1 - Generalized anxiety disorder (4) Depression, major, recurrent: Code(s): F33.9 - Major depressive disorder, recurrent, unspecified Qualifiers: Active/Remission status: in partial remission Qualified Code(s): F33.41 - Major depressive disorder, recurrent, in partial remission (5) Chronic lower back pain: Code(s): M54.5 - Low back pain; G89.29 - Other chronic pain Qualifiers: Back pain laterality: bilateral Sciatica presence: without sciatica Qualified Code(s): M54.50 - Low back pain, unspecified; G89.29 - Other chronic pain (6) Environmental allergies: Code(s): Z91.09 - Other allergy status, other than to drugs and biological substances (7) Mild sleep apnea: Code(s): G47.30 - Sleep apnea, unspecified (8) Obesity due to excess calories: Code(s): E66.09 - Other obesity due to excess calories Qualifiers: Body mass index: BMI 35.0-35.9 Obesity classification: adult class 2 (BMI 35 - 39.9) Serious obesity comorbidity presence: without serious comorbidity Qualified Code(s): E66.09 - Other obesity due to excess calories; Z68.35 - Body mass index [BMI] 35.0-35.9, adult Plan Patient is a 43-year-old female came in today for her regular follow-up appointment Patient is currently on phentermine 37.5 mg, she was able to lose 2 more lb since last month Have set a new goal losing at least 8 lb in 2 months, she will return in 2 months for follow-up on that now One month medications sent and patient will call me for refill in 1 month Patient is seeing Dr. Richards for fibromyalgia treatment and is taking amitriptyline 25 mg from his office Headaches are stable Patient have chronic lower back pain which comes and goes she is on muscle relaxers as needed Depression and anxiety is stable patient is on Wellbutrin 150 mg, Lexapro 20 mg and BuSpar 5 mg b.i.d. Blood Pressure is well controlled Sleep study showed mild sleep apnea and conservative management was recommended Follow-up 2 months, labs done earlier this year reviewed Medications: Refilled phentermine must administer 2 hours after breakfast 37.5 mg PO DAILY 30 caps 0RF 30 days E66.09 - Other obesity due to excess calories, Z68.35 - Body mass index [BMI] 35.0-35.9, adult Coding Level of Care Code Est Pt Level 4 (78808) Diagnoses Hypertension, essential I10 Headache syndrome G44.89 Anxiety, generalized F41.1 Recurrent major depressive disorder, in partial remission F33.41 Active/Remission status: in partial remission Chronic bilateral low back pain without sciatica M54.50; G89.29 Back pain laterality: bilateral Sciatica presence: without sciatica Environmental allergies Z91.09 Mild sleep apnea G47.30 Class 2 obesity due to excess calories without serious comorbidity with body mass index (BMI) of 35.0 to 35.9 in adult E66.09; Z68.35 Body mass index: BMI 35.0-35.9 Obesity classification: adult class 2 (BMI 35 - 39.9) Serious obesity comorbidity presence: without serious comorbidity Additional Codes ZANE-7 Assessment Billing - ZANE-7 Assessment Tool: ZANE-7 Assessment 93565 ([id number])
== END 2024-05-10 10:05 | disposition home or self-care (01) ==
PROVIDERS: PCP Internal Medicine; Visit Provider Internal Medicine
DX: I10 Essential (primary) hypertension (principal); F33.41 Major depressive disorder, recurrent, in partial remission; G44.89 Other headache syndrome; F41.1 Generalized anxiety disorder; M54.50 Low back pain, unspecified; G89.29 Other chronic pain; Z91.09 Other allergy status, other than to drugs and biological substances; G47.30 Sleep apnea, unspecified; E66.09 Other obesity due to excess calories; Z68.35 Body mass index [BMI] 35.0-35.9, adult
CPT/HCPCS: 99214

== ENCOUNTER 2024-07-12 10:10 | Outpatient (AMB) | payer OTHER, SELFPAY ==
[2024-07-12 10:22] VITALS: BP 118/72; PULSE 76; O2SAT 99; BMI 33.7
--- NOTE | 2024-07-12 10:22 | A.OFFPC_ITS ---
Vital Signs 07/12/24 10:22 Height 5 ft 5 in Weight 202 lb 4 oz BMI 33.7 BP 118/72 Blood Pressure Location Rt brachial Position Sitting Pulse 76 Pulse Source Pulse Oximeter Pulse Oximetry (%) 99 Oxygen Delivery Method Room Air Intake Visit Reasons: 2 month follow up Allergies No Known Allergies Allergy (Verified 07/12/24 10:25) Medication List - Last Reconciled 07/12/24 by Carter Roblero MD atenolol 25 mg PO DAILY bupropion HCl XL 150 mg PO QAM 90 days buspirone 5 mg PO TID PRN 90 days cyclobenzaprine 5 mg PO BEDTIME escitalopram oxalate 20 mg PO DAILY 90 days loratadine (Claritin) 10 mg PO DAILY PRN multivitamin (Daily Multi-Vitamin tablet) 1 tab PO DAILY norethindrone-e.estradiol-iron 1.5 mg-30 mcg (21)/75 mg (7) (June FE 1.5/30 ( )) 1 tab PO DAILY oxybutynin chloride ER 10 mg PO DAILY phentermine 37.5 mg PO DAILY 30 days Tobacco use date assessed: 07/12/24 Dental Screening Dental Screen Date: 07/12/24 Did you have a dental visit in the last 12 months?: Yes Did you have a dental problem in the last 6 months where you did not have access to dental care?: No Was dental information given to patient?: Patient has dentist HPI 2 month follow up HPI Details Patient is a 43-year-old female came in today for regular follow-up appointment Patient is on phentermine 37.5 mg she was able to lose weight compared to April She is tolerating medication we will continue that for now Lab order placed to be done before next visit She has appointment for physical exam coming up August 23 Allergies are stable Blood pressure is stable Patient is taking all her medications Back pain is stable patient is taking cyclobenzaprine 5 mg as needed She is also on oxybutynin for stress incontinence which is also helping her. [facility] Medical History Chronic lower back pain Depression, major, recurrent Anxiety, generalized Surgical History No pertinent past surgical history Family History Father HTN (hypertension) Diabetes mellitus Mother HTN (hypertension) Mental health disorder Maternal Grandmother Mental health disorder Social History Housing: House Patient Tobacco Use Status: Never used Tobacco e-Cigarette/Vaping Use: Never Used service: No Current occupational status: employed Cognitive needs: No Hearing needs: No Vision needs: Yes (contacts) Questionnaire PHQ-9 Over the last 2 weeks, how often have you been bothered by any of the following problems? 1. Little interest or pleasure in doing things: several days 2. Feeling down, depressed, or hopeless: several days 3. Trouble falling or staying asleep, or sleeping too much: more than half the days 4. Feeling tired or having little energy: more than half the days 5. Poor appetite or overeating: not at all 6. Feeling bad about yourself - or that you are a failure or have let yourself or your family down: several days 7. Trouble concentrating on things, such as reading the newspaper or watching television: more than half the days 8. Moving or speaking so slowly that other people could have noticed. Or the opposite - being so fidgety or restless that you have been moving around a lot more than usual: several days 9. Thoughts that you would be better off or of hurting yourself in some way : not at all Total score: 10 Depression Screening Interpretation: Positive Depression Screening Follow-up: Existing condition and In treatment Depression Screening Done: Yes 89344 - PHQ-9 Billing: Yes Source: Developed by Drs. Lexa Bermudez, Neeru Ratliff, Blaine Aguilera and colleagues, with an educational mohit from [employer]. Thrive Questionnaire Date Thrive assessed: 07/12/24 I am a: Patient What is your living situation today?: I have a steady place to live Within the past 12 months, did the food you bought not last and you didn't have the money to get more?: Never true Within the past 12 months, did you worry whether your food would run out before you got money to buy more?: Never true Do you have trouble paying for medicines?: No Do you have trouble getting transportation to medical appointments?: No Do you have trouble paying your heating and electricity bill?: No Do you have trouble taking care of your child, family member or friend?: No Do you have trouble with day-to-day activities such as bathing, preparing meals, shopping, managing finances, etc.?: No Are you currently unemployed and looking for a job?: No Are you interested in more education?: No Please select the resources that you would like help with: None Currently or been in a relationship where the following occur: I choose not to answer THRIVE Score: 0 AUDIT C Alcohol Use Questionnaire (AUDIT-C) 1. How often do you have a drink containing alcohol?: Monthly or less 2. How many drinks containing alcohol do you have on a typical day when you are drinking?: 1 or 2 3. How often do you have six or more drinks on one occasion?: Never Total Score: 1 Score Reviewed/Action Taken: Yes ZANE-7 AMB Questionnaire ZANE-7 Date ZANE - 7 assessed: 07/12/24 Feeling nervous, anxious, or on edge: 3 = Nearly every day Not being able to stop or control worryin = Nearly every day Worrying too much about different things: 3 = Nearly every day Trouble relaxin = Nearly every day Being so restless that it is hard to sit still: 2 = More than half the days Becoming easily annoyed or irritable: 3 = Nearly every day Feeling afraid as if something awful might happen: 1 = Several days Total ZANE-7 score (0-4 normal; 5-9 mild; 10-14 moderate; 15-21 severe): 18 Source: Developed by Drs. Lexa Bermudez, Neeru Ratliff, Blaine Aguilera and colleagues, with an educational mohit from [employer]. ZANE-7 Assessment Billing ZANE-7 Assessment Tool: ZANE-7 Assessment 79160 Review of Systems Const Denies chills and Denies fever(s) ENT Denies epistaxis and Denies nasal discharge Card Denies chest pain Resp Denies chest congestion, Denies cough and Denies hemoptysis GI Denies diarrhea and Denies nausea Skin/Breast Denies rash Neuro Reports no additional complaints Psych Reports no additional complaints Endo Reports no additional complaints Physical exam (Primary Care) Vital Signs: Last Vital Signs Pulse 76 07/12/24 10:22 BP 118/72 07/12/24 10:22 Pulse Ox 99 07/12/24 10:22 Oxygen Delivery Method Room Air 07/12/24 10:22 BMI result Body Mass Index 33.7 Tobacco/Smoking Status: Tobacco use Status Tobacco use date assessed 07/12/24 07/12/24 10:25 Patient Tobacco Use Status Never used Tobacco 07/12/24 10:25 e-Cigarette/Vaping Use Never Used 07/12/24 10:25 PHQ-9: PHQ-9 Score PHQ-9: Total score 10 07/12/24 10:25 Depression Screening Interpretation: Positive Depression Screening Follow-up: Existing condition and In treatment Thrive Assessment: Date of Thrive Assessment Date Thrive assessed 07/12/24 07/12/24 10:25 Currently or been in a relationship where the following occur: I choose not to answer Const General: cooperative, comfortable and no acute distress Orientation/consciousness: patient oriented x3 HENMT Head: Yes normocephalic Eyes General: appearance normal, both eyes and all related structures Neck Neck: Yes supple Resp Effort & Inspection: normal respiratory effort, no cough and no stridor Cardio Rhythm: regular rhythm Heart sounds: S1 normal heart sound present and S2 normal heart sound present Skin General skin exam: turgor normal Neuro General: patient oriented x3, tone normal and moves all extremities Extrem Right lower extremity: no edema Left lower extremity: no edema Assessment and Plan Assessment & Plan (1) Hypertension, essential: Code(s): I10 - Essential (primary) hypertension (2) Anxiety, generalized: Code(s): F41.1 - Generalized anxiety disorder (3) Depression, major, recurrent: Code(s): F33.9 - Major depressive disorder, recurrent, unspecified Qualifiers: Active/Remission status: in partial remission Qualified Code(s): F33.41 - Major depressive disorder, recurrent, in partial remission (4) Environmental allergies: Code(s): Z91.09 - Other allergy status, other than to drugs and biological substances (5) Obesity due to excess calories: Code(s): E66.09 - Other obesity due to excess calories Qualifiers: Obesity classification: adult class 2 (BMI 35 - 39.9) Serious obesity comorbidity presence: without serious comorbidity Body mass index: BMI 35.0- 35.9 Qualified Code(s): E66.09 - Other obesity due to excess calories; Z68.35 - Body mass index [BMI] 35.0-35.9, adult (6) Fibromyalgia: Code(s): M79.7 - Fibromyalgia Plan Patient is a 43-year-old female came in today for regular follow-up appointment Patient is on phentermine 37.5 mg she was able to lose weight compared to April She is tolerating medication we will continue that for now Lab order placed to be done before next visit She has appointment for physical exam coming up August 23 Allergies are stable Blood pressure is stable Patient is taking all her medications Back pain is stable patient is taking cyclobenzaprine 5 mg as needed She is also on oxybutynin for stress incontinence which is also helping her. Orders: Orders Vitamin D 25-OH (D2 and D3) Today E66.09 - Other obesity due to excess calories, F33.41 - Major depressive disorder, recurrent, in partial remission, F41.1 - Generalized anxiety disorder, I10 - Essential (primary) hypertension, M79.7 - Fibromyalgia, Z68.35 - Body mass index [BMI] 35.0-35.9, adult, Z91.09 - Other allergy status, other than to drugs and biological substances TSH reflex Free T4 Today E66.09 - Other obesity due to excess calories, F33.41 - Major depressive disorder, recurrent, in partial remission, F41.1 - Generalized anxiety disorder, I10 - Essential (primary) hypertension, M79.7 - Fibromyalgia, Z68.35 - Body mass index [BMI] 35.0-35.9, adult, Z91.09 - Other allergy status, other than to drugs and biological substances Complete Blood Count Auto Diff Today E66.09 - Other obesity due to excess calories, F33.41 - Major depressive disorder, recurrent, in partial remission, F41.1 - Generalized anxiety disorder, I10 - Essential (primary) hypertension, M79.7 - Fibromyalgia, Z68.35 - Body mass index [BMI] 35.0-35.9, adult, Z91.09 - Other allergy status, other than to drugs and biological substances Comprehensive [place]. Panel Fast Today E66.09 - Other obesity due to excess calories, F33.41 - Major depressive disorder, recurrent, in partial remission, F41.1 - Generalized anxiety disorder, I10 - Essential (primary) hypertension, M79.7 - Fibromyalgia, Z68.35 - Body mass index [BMI] 35.0-35.9, adult, Z91.09 - Other allergy status, other than to drugs and biological substances Lipid Panel Today E66.09 - Other obesity due to excess calories, F33.41 - Major depressive disorder, recurrent, in partial remission, F41.1 - Generalized anxiety disorder, I10 - Essential (primary) hypertension, M79.7 - Fibromyalgia, Z68.35 - Body mass index [BMI] 35.0-35.9, adult, Z91.09 - Other allergy status, other than to drugs and biological substances Medications: Refilled phentermine must administer 2 hours after breakfast 37.5 mg PO DAILY 30 days 30 caps 0RF E66.09 - Other obesity due to excess calories, Z68.35 - Body mass index [BMI] 35.0-35.9, adult Coding Level of Care Code Est Pt Level 4 (95231) Diagnoses Hypertension, essential I10 Anxiety, generalized F41.1 Recurrent major depressive disorder, in partial remission F33.41 Active/Remission status: in partial remission Environmental allergies Z91.09 Class 2 obesity due to excess calories without serious comorbidity with body mass index (BMI) of 35.0 to 35.9 in adult E66.09; Z68.35 Obesity classification: adult class 2 (BMI 35 - 39.9) Serious obesity comorbidity presence: without serious comorbidity Body mass index: BMI 35.0-35.9 Fibromyalgia M79.7 Additional Codes ZANE-7 Assessment Billing - ZANE-7 Assessment Tool: ZANE-7 Assessment [id number] ([id number])
== END 2024-07-12 10:45 | disposition home or self-care (01) ==
PROVIDERS: PCP Internal Medicine; Visit Provider Internal Medicine
DX: I10 Essential (primary) hypertension (principal); F41.1 Generalized anxiety disorder; F33.41 Major depressive disorder, recurrent, in partial remission; Z91.09 Other allergy status, other than to drugs and biological substances; E66.09 Other obesity due to excess calories; Z68.35 Body mass index [BMI] 35.0-35.9, adult; M79.7 Fibromyalgia

== ENCOUNTER → 2024-07-12 10:10 | Outpatient (BNVA) | payer OTHER, SELFPAY | PROVIDERS: PCP Internal Medicine; Visit Provider Internal Medicine | DX: I10 Essential (primary) hypertension (principal); F41.1 Generalized anxiety disorder; F33.41 Major depressive disorder, recurrent, in partial remission; E66.09 Other obesity due to excess calories; Z68.35 Body mass index [BMI] 35.0-35.9, adult; M79.7 Fibromyalgia; Z91.09 Other allergy status, other than to drugs and biological substances; Z79.899 Other long term (current) drug therapy | CPT/HCPCS: 96127 ==

== ENCOUNTER 2024-08-19 09:59 | Outpatient (REF) | payer OTHER, SELFPAY ==
[2024-08-19 11:13] LABS: MANUAL DIFF FLAG NO
[2024-08-19 11:42] LABS: Basophils Percent Auto 0.4 % (0-2); Eosinophils Absolute Auto 0.1 X10*3/uL (0.0-0.4); Eosinophils Percent Auto 0.8 % (0-4); Hematocrit 40.8 % (37.0-47.0); Imm Gran Abs Auto 0.02 X10*3/uL (0.00-0.03); Imm Gran Pct Auto 0.3 % (0.0-0.4); Lymphocytes Absolute Auto 1.8 X10*3/uL (1.2-4.9); Lymphocytes Percent Auto 25.2 % (20-40); Mean Corpuscular HGB Conc 34.3 g/dl (31.0-35.0); Mean Corpuscular Hemoglobin 30.8 pg (27.0-33.0); Mean Corpuscular Volume 89.9 fL (80.0-98.0); Mean Platelet Volume 10.4 fL (9.4-12.3); Monocytes Absolute Auto 0.5 X10*3/uL (0.1-1.2); Monocytes Percent Auto 6.5 % (2-11); Neutrophils Absolute Auto 4.8 x10*3/uL (2.0-8.3); Neutrophils Percent Auto 66.8 % (45-73); Platelet Count 299 X10*3/uL (160-400); Red Blood Count 4.54 X10*6/uL (4.20-5.50); Red Cell Distribution Width 12.4 % (11.0-16.0); White Blood Count 7.2 X10*3/uL (4.8-10.8)
[2024-08-19 12:03] LABS: Alanine Aminotransferase 24 U/L (0-31); Albumin Level 3.9 g/dL (3.5-5.0); Alkaline Phosphatase 76 U/L (39-117); Anion Gap 11 (12-20); Aspartate Amino Transferase 29 U/L (5-31); Bilirubin Total 0.5 mg/dL (0.0-1.0); Blood Urea Nitrogen 9 mg/dL (9-16); Calcium 8.7 mg/dL (8.4-10.2); Carbon Dioxide 23 mmol/L (22-29); Chloride 110 mmol/L (96-108); Cholesterol 150 mg/dL (<200); Estimated Glomerular Filt Rate 59; Glucose Fasting 95 mg/dL (60-99); HDL Cholesterol 40 mg/dL (>40); LDL Cholesterol Calculated 94 mg/dL (<100); Sodium 140 mmol/L (135-145); Total Protein 6.7 g/dL (6.5-8.0); Triglycerides 83 mg/dL (<150)
[2024-08-19 12:18] LABS: TSH reflex Free T4 1.42 uIU/mL (0.32-4.0)
[2024-08-24 15:57] LABS: Vitamin D 25-OH, D2 <4 ng/mL; Vitamin D 25-OH, D3 33 ng/mL; Vitamin D 25-OH, Total 33 ng/mL (30-100)
== END 2024-08-19 10:00 | disposition home or self-care (01) ==
LOC: HO.HMGCLDS 09:59
PROVIDERS: PCP Internal Medicine; Visit Provider Internal Medicine
DX: F41.1 Generalized anxiety disorder (principal); I10 Essential (primary) hypertension; F33.41 Major depressive disorder, recurrent, in partial remission; Z91.09 Other allergy status, other than to drugs and biological substances; E66.09 Other obesity due to excess calories; Z68.35 Body mass index [BMI] 35.0-35.9, adult; M79.7 Fibromyalgia
CPT/HCPCS: 36415; 80053; 80061; 82306; 84443; 85025

== ENCOUNTER 2024-08-23 10:33 | Outpatient (AMB) | payer OTHER, SELFPAY ==
[2024-08-23 10:38] VITALS: BP 112/78; PULSE 78; O2SAT 98; BMI 32.8
--- NOTE | 2024-08-23 10:38 | MHC.PC.OV ---
Vital Signs 08/23/24 10:38 Height 5 ft 5 in Weight 197 lb 6 oz BMI 32.8 BP 112/78 Blood Pressure Location Lt brachial Position Sitting Pulse 78 Pulse Source Pulse Oximeter Pulse Oximetry (%) 98 Oxygen Delivery Method Room Air Intake Visit Reasons: Annual PE Allergies No Known Allergies Allergy (Verified 08/23/24 10:41) Medication List - Last Reconciled 08/23/24 by Carter Roblero MD atenolol 25 mg PO DAILY bupropion HCl XL 150 mg PO QAM 90 days buspirone 5 mg PO TID PRN 90 days cyclobenzaprine 5 mg PO BEDTIME escitalopram oxalate 20 mg PO DAILY 90 days loratadine (Claritin) 10 mg PO DAILY PRN multivitamin (Daily Multi-Vitamin tablet) 1 tab PO DAILY norethindrone-e.estradiol-iron 1.5 mg-30 mcg (21)/75 mg (7) ( FE 1.5/30 ()) 1 tab PO DAILY oxybutynin chloride ER 10 mg PO DAILY phentermine 37.5 mg PO DAILY 30 days Tobacco use date assessed: 08/23/24 Dental Screening Dental Screen Date: 08/23/24 Did you have a dental visit in the last 12 months?: Yes Did you have a dental problem in the last 6 months where you did not have access to dental care?: No Was dental information given to patient?: Patient has dentist HPI Annual PE HPI Details Physical exam appointment Mammogram was October of this year Patient is in need of new OBGYN Labs were done this month reviewed again Patient lost 5 more lb since last 1 month on phentermine Lower back pain is bothering her as she ran out a muscle relaxer Refill sent Moods are stable Vital signs stable Patient will return on October 06 for medication refill now And 1 year physical exam [facility] Medical History Chronic lower back pain Depression, major, recurrent Anxiety, generalized Surgical History No pertinent past surgical history Family History Father HTN (hypertension) Diabetes mellitus Mother HTN (hypertension) Mental health disorder Maternal Grandmother Mental health disorder Social History Housing: House Patient Tobacco Use Status: Never used Tobacco e-Cigarette/Vaping Use: Never Used service: No Current occupational status: employed Cognitive needs: No Hearing needs: No Vision needs: Yes (contacts) Questionnaire Thrive Questionnaire Date Thrive assessed: 07/12/24 I am a: Patient What is your living situation today?: I have a steady place to live Within the past 12 months, did the food you bought not last and you didn't have the money to get more?: Never true Within the past 12 months, did you worry whether your food would run out before you got money to buy more?: Never true Do you have trouble paying for medicines?: No Do you have trouble getting transportation to medical appointments?: No Do you have trouble paying your heating and electricity bill?: No Do you have trouble taking care of your child, family member or friend?: No Do you have trouble with day-to-day activities such as bathing, preparing meals, shopping, managing finances, etc.?: No Are you currently unemployed and looking for a job?: No Are you interested in more education?: No Please select the resources that you would like help with: None Currently or been in a relationship where the following occur: I choose not to answer THRIVE Score: 0 AUDIT C Alcohol Use Questionnaire (AUDIT-C) 1. How often do you have a drink containing alcohol?: Monthly or less 2. How many drinks containing alcohol do you have on a typical day when you are drinking?: 1 or 2 3. How often do you have six or more drinks on one occasion?: Never Total Score: 1 Score Reviewed/Action Taken: Yes ZANE-7 AMB Questionnaire ZANE-7 Date ZANE - 7 assessed: 07/12/24 Source: Developed by Drs. Lexa Bermudez, Neeru Ratliff, Blaine Aguilera and colleagues, with an educational mohit from [employer]. Review of Systems Const Denies chills, Denies fever(s) and Denies headache(s) Eyes Denies blurry vision ENT Denies headache(s), Denies nasal discharge, Denies nasal obstruction, Denies odynophagia and Denies sinus pain Card Denies chest pain at rest and Denies chest pain with activity Resp Denies cough and Denies hemoptysis GI Denies diarrhea, Denies odynophagia, Denies vomiting and Denies hematemesis Reports as per HPI Musc Denies abnormal gait Skin/Breast Reports as per HPI Neuro Denies Neuro-related abnormal movements, Denies Abnormal speech present, Denies abnormal gait, Denies headache(s) and Denies Sensory deficit (Neuro) Psych Denies mood swings and Denies paranoia Endo Reports as per HPI Johnathon/Lymph Reports as per HPI Aller/Immun Reports as per HPI Physical exam (Primary Care) Vital Signs: Last Vital Signs Pulse 78 08/23/24 10:38 BP 112/78 08/23/24 10:38 Pulse Ox 98 08/23/24 10:38 Oxygen Delivery Method Room Air 08/23/24 10:38 BMI result Body Mass Index 32.8 Tobacco/Smoking Status: Tobacco use Status Tobacco use date assessed 08/23/24 08/23/24 10:42 Patient Tobacco Use Status Never used Tobacco 08/23/24 10:40 e-Cigarette/Vaping Use Never Used 08/23/24 10:40 Thrive Assessment: Date of Thrive Assessment Date Thrive assessed 07/12/24 08/23/24 10:40 Currently or been in a relationship where the following occur: I choose not to answer Const General: cooperative, comfortable and no acute distress Orientation/consciousness: patient oriented x3 HENMT Head: Yes normocephalic and Yes atraumatic Eyes General: appearance normal, both eyes and all related structures Pupils: Equal, round and reactive pupils present EOM: EOMs intact bilaterally Neck Neck: Yes supple and No lymphadenopathy Thyroid: Thyroid normal Lymphatic: no lymphadenopathy noted Resp Effort & Inspection: normal respiratory effort and able to speak in complete sentences Auscultation: clear to auscultation bilaterally Cardio Heart sounds: S1 normal heart sound present and S2 normal heart sound present GI Palpation (GI): Soft to palpation and nontender Auscultation: normal bowel sounds General: Yes no CVA tenderness Back/Spine/Pelvis Back: no CVA tenderness Skin General skin exam: elasticity normal and turgor normal Neuro General: patient oriented x3 and gait normal Cranial nerves: Yes Equal, round and reactive pupils present Speech: No Abnormal speech present Sensory Exam: No Sensory deficit (Neuro) Coordination: tandem gait normal and Romberg test negative Extrem General: Yes normal exam except as noted and No edema Coding Level of Care Code Est Pt Level 3 (05464) Est Pt Prev Care 40-64y(21032) Diagnoses Encounter for general adult medical examination with abnormal findings Z00.01 Hypertension, essential I10 Anxiety, generalized F41.1 Recurrent major depressive disorder, in partial remission F33.41 Active/Remission status: in partial remission Urge incontinence of urine N39.41 Chronic bilateral low back pain without sciatica M54.50; G89.29 Back pain laterality: bilateral Sciatica presence: without sciatica Class 2 obesity due to excess calories without serious comorbidity with body mass index (BMI) of 35.0 to 35.9 in adult E66.09; Z68.35 Obesity classification: adult class 2 (BMI 35 - 39.9) Serious obesity comorbidity presence: without serious comorbidity Body mass index: BMI 35.0-35.9 Environmental allergies Z91.09 Assessment & Plan Assessment & Plan (1) Encounter for general adult medical examination with abnormal findings: Code(s): Z00.01 - Encounter for general adult medical examination with abnormal findings Category: Medical (2) Hypertension, essential: Code(s): I10 - Essential (primary) hypertension Category: Medical (3) Anxiety, generalized: Code(s): F41.1 - Generalized anxiety disorder Category: Medical (4) Depression, major, recurrent: Code(s): F33.9 - Major depressive disorder, recurrent, unspecified Category: Medical Qualifiers: Active/Remission status: in partial remission Qualified Code(s): F33.41 - Major depressive disorder, recurrent, in partial remission (5) Urge incontinence of urine: Code(s): N39.41 - Urge incontinence Category: Medical (6) Chronic lower back pain: Code(s): M54.5 - Low back pain; G89.29 - Other chronic pain Category: Medical Qualifiers: Back pain laterality: bilateral Sciatica presence: without sciatica Qualified Code(s): M54.50 - Low back pain, unspecified; G89.29 - Other chronic pain (7) Obesity due to excess calories: Code(s): E66.09 - Other obesity due to excess calories Category: Medical Qualifiers: Obesity classification: adult class 2 (BMI 35 - 39.9) Serious obesity comorbidity presence: without serious comorbidity Body mass index: BMI 35.0-35.9 Qualified Code(s): E66.09 - Other obesity due to excess calories; Z68.35 - Body mass index [BMI] 35.0-35.9, adult (8) Environmental allergies: Code(s): Z91.09 - Other allergy status, other than to drugs and biological substances Category: Medical Plan Physical exam appointment Mammogram was October of this year Patient is in need of new OBGYN Labs were done this month reviewed again Patient lost 5 more lb since last 1 month on phentermine Lower back pain is bothering her as she ran out a muscle relaxer Refill sent Moods are stable Vital signs stable Breast exam declined Patient will return on October 06 for medication refill now And 1 year physical exam Orders: Referrals [employer] Referral Z01.419 - Encounter for gynecological examination (general) (routine) without abnormal findings Medications: New oxybutynin chloride ER 10 mg PO DAILY 90 tabs 0RF Refilled atenolol 25 mg PO DAILY 90 tabs 0RF bupropion HCl XL 150 mg PO QAM 90 days 90 tabs 0RF buspirone 5 mg PO TID 90 days PRN 180 tabs 0RF anxiety cyclobenzaprine 5 mg PO BEDTIME 90 tabs 1RF escitalopram oxalate 20 mg PO DAILY 90 days 90 tabs 0RF
== END 2024-08-23 10:57 | disposition home or self-care (01) ==
LOC: HO.HMCC 10:34
PROVIDERS: PCP Internal Medicine; Visit Provider Internal Medicine
DX: Z00.00 Encounter for general adult medical examination without abnormal findings (principal); I10 Essential (primary) hypertension; F33.41 Major depressive disorder, recurrent, in partial remission; F41.1 Generalized anxiety disorder; N39.41 Urge incontinence; M54.50 Low back pain, unspecified; G89.29 Other chronic pain; E66.09 Other obesity due to excess calories; Z68.35 Body mass index [BMI] 35.0-35.9, adult; Z91.09 Other allergy status, other than to drugs and biological substances

== ENCOUNTER → 2024-08-23 10:33 | Outpatient (BNVA) | payer OTHER, SELFPAY | PROVIDERS: PCP Internal Medicine; Visit Provider Internal Medicine ==

== ENCOUNTER 2024-10-06 15:16 | Outpatient (AMB) | payer OTHER, SELFPAY ==
[2024-10-06 15:17] VITALS: BP 110/66; PULSE 60; O2SAT 97; BMI 32.1
--- NOTE | 2024-10-06 15:17 | MHC.PC.OV ---
Vital Signs 10/06/24 15:17 Height 5 ft 5 in Weight 193 lb BMI 32.1 BP 110/66 Blood Pressure Location Rt brachial Position Sitting Pulse 60 Pulse Source Pulse Oximeter Pulse Oximetry (%) 97 Oxygen Delivery Method Room Air Intake Visit Reasons: follow up Allergies No Known Allergies Allergy (Verified 10/06/24 15:19) Medication List - Last Reconciled 10/06/24 by Carter Roblero MD atenolol 25 mg PO DAILY bupropion HCl XL 150 mg PO QAM 90 days buspirone 5 mg PO TID PRN 90 days cyclobenzaprine 5 mg PO BEDTIME escitalopram oxalate 20 mg PO DAILY 90 days loratadine (Claritin) 10 mg PO DAILY PRN multivitamin (Daily Multi-Vitamin tablet) 1 tab PO DAILY norethindrone-e.estradiol-iron 1.5 mg-30 mcg ()/75 mg (7) ( FE 1.5 ()) 1 tab PO DAILY oxybutynin chloride ER 10 mg PO DAILY phentermine 37.5 mg PO DAILY 30 days Tobacco use date assessed: 10/06/24 Dental Screening Dental Screen Date: 08/23/24 HPI follow up HPI Details Chief Complaint management of weight loss. History of Present Illness Patient is on phentermine 37.5 mg. She reports no adverse effects from the medication, specifically mentioning no chest pains or palpitations. 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 Recent laboratory studies have shown normal thyroid and vitamin D levels as confirmed by the patient's recent physical examination. The patient anticipates having a mammogram in October. She was initially prescribed a lower dose of the medication, which was subsequently increased due to inadequate efficacy at the initial dose. As of the present visit, the patient indicates she has about seven days remaining of her current medication supply. Plan - I will provide a medication refill to ensure the patient continues her current regimen without interruption. - I advised the patient to maintain her current level of physical activity and dietary measures. - I discussed the results of her recent lab tests, confirming the normal status of her vitamin D and thyroid levels. - The patient is instructed to follow up with me in approximately seven weeks before her medication runs out to reassess her progress and any need for further adjustments. - The patient is reminded to message me through the portal if she requires a medication refill or has any concerns. - I reaffirm the importance of her upcoming mammogram scheduled for October and its role in her ongoing health maintenance. [facility] Medical History Chronic lower back pain Depression, major, recurrent Anxiety, generalized Surgical History No pertinent past surgical history Family History Father HTN (hypertension) Diabetes mellitus Mother HTN (hypertension) Mental health disorder Maternal Grandmother Mental health disorder Social History Housing: House Patient Tobacco Use Status: Never used Tobacco e-Cigarette/Vaping Use: Never Used service: No Current occupational status: employed Cognitive needs: No Hearing needs: No Vision needs: Yes (contacts) Questionnaire Thrive Questionnaire Date Thrive assessed: 05/10/24 I am a: Patient What is your living situation today?: I have a steady place to live Within the past 12 months, did the food you bought not last and you didn't have the money to get more?: Never true Within the past 12 months, did you worry whether your food would run out before you got money to buy more?: Never true Do you have trouble paying for medicines?: No Do you have trouble getting transportation to medical appointments?: No Do you have trouble paying your heating and electricity bill?: No Do you have trouble taking care of your child, family member or friend?: No Do you have trouble with day-to-day activities such as bathing, preparing meals, shopping, managing finances, etc.?: No Are you currently unemployed and looking for a job?: No Are you interested in more education?: No Please select the resources that you would like help with: None Currently or been in a relationship where the following occur: I choose not to answer THRIVE Score: 0 ZANE-7 AMB Questionnaire ZANE-7 Date ZANE - 7 assessed: 07/12/24 Source: Developed by Drs. Lexa Bermudez, Neeru Ratliff, Blaine Aguilera and colleagues, with an educational mohit from [employer]. Review of Systems Const Denies chills and Denies fever(s) ENT Denies epistaxis and Denies nasal discharge Card Denies chest pain Resp Denies chest congestion, Denies cough and Denies hemoptysis GI Denies diarrhea and Denies nausea Skin/Breast Denies rash Neuro Reports no additional complaints Psych Reports no additional complaints Endo Reports no additional complaints Physical exam (Primary Care) Vital Signs: Last Vital Signs Pulse 60 10/06/24 15:17 BP 110/66 10/06/24 15:17 Pulse Ox 97 10/06/24 15:17 Oxygen Delivery Method Room Air 10/06/24 15:17 BMI result Body Mass Index 32.1 Tobacco/Smoking Status: Tobacco use Status Tobacco use date assessed 10/06/24 10/06/24 15:22 Patient Tobacco Use Status Never used Tobacco 10/06/24 15:22 e-Cigarette/Vaping Use Never Used 10/06/24 15:22 Thrive Assessment: Date of Thrive Assessment Date Thrive assessed 05/10/24 10/06/24 15:22 Currently or been in a relationship where the following occur: I choose not to answer Const General: cooperative, comfortable and no acute distress Orientation/consciousness: patient oriented x3 HENMT Head: Yes normocephalic Eyes General: appearance normal, both eyes and all related structures Neck Neck: Yes supple Resp Effort & Inspection: normal respiratory effort, no cough and no stridor Cardio Rhythm: regular rhythm Heart sounds: S1 normal heart sound present and S2 normal heart sound present Skin General skin exam: turgor normal Neuro General: patient oriented x3, tone normal and moves all extremities Extrem Right lower extremity: no edema Left lower extremity: no edema Coding Level of Care Code Est Pt Level 3 (32728) Diagnoses Class 2 obesity due to excess calories without serious comorbidity with body mass index (BMI) of 35.0 to 35.9 in adult E66.09; Z68.35 Obesity classification: adult class 2 (BMI 35 - 39.9) Serious obesity comorbidity presence: without serious comorbidity Body mass index: BMI 35.0-35.9 Assessment & Plan Assessment & Plan (1) Obesity due to excess calories: Code(s): E66.09 - Other obesity due to excess calories Category: Medical Qualifiers: Obesity classification: adult class 2 (BMI 35 - 39.9) Serious obesity comorbidity presence: without serious comorbidity Body mass index: BMI 35.0-35.9 Qualified Code(s): E66.09 - Other obesity due to excess calories; Z68.35 - Body mass index [BMI] 35.0-35.9, adult Plan Chief Complaint management of weight loss. History of Present Illness Patient is on phentermine 37.5 mg. She reports no adverse effects from the medication, specifically mentioning no chest pains or palpitations. 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 Recent laboratory studies have shown normal thyroid and vitamin D levels as confirmed by the patient's recent physical examination. The patient anticipates having a mammogram in October. She was initially prescribed a lower dose of the medication, which was subsequently increased due to inadequate efficacy at the initial dose. As of the present visit, the patient indicates she has about seven days remaining of her current medication supply. Plan - I will provide a medication refill to ensure the patient continues her current regimen without interruption. - I advised the patient to maintain her current level of physical activity and dietary measures. - I discussed the results of her recent lab tests, confirming the normal status of her vitamin D and thyroid levels. - The patient is instructed to follow up with me in approximately seven weeks before her medication runs out to reassess her progress and any need for further adjustments. - The patient is reminded to message me through the portal if she requires a medication refill or has any concerns. - I reaffirm the importance of her upcoming mammogram scheduled for October and its role in her ongoing health maintenance. Medications: New phentermine must administer 30 minutes before or 1-2 hours after breakfast 37.5 mg PO DAILY 30 days 30 tabs 0RF
== END 2024-10-06 15:29 | disposition home or self-care (01) ==
PROVIDERS: PCP Internal Medicine; Visit Provider Internal Medicine
DX: E66.09 Other obesity due to excess calories (principal); Z68.35 Body mass index [BMI] 35.0-35.9, adult

== ENCOUNTER 2024-11-24 15:17 | Outpatient (AMB) | payer OTHER, SELFPAY ==
[2024-11-24 15:22] VITALS: BP 116/78; PULSE 62; O2SAT 100; BMI 31.8
--- NOTE | 2024-11-24 15:22 | MHC.PC.OV ---
Vital Signs 11/24/24 15:22 Height 5 ft 5 in Weight 191 lb BMI 31.8 BP 116/78 Blood Pressure Location Rt brachial Position Sitting Pulse 62 Pulse Source Pulse Oximeter Pulse Oximetry (%) 100 Oxygen Delivery Method Room Air Intake Visit Reasons: 6 weeks f/up Allergies No Known Allergies Allergy (Verified 11/24/24 15:25) Medication List - Last Reconciled 11/24/24 by Carter Roblero MD atenolol 25 mg PO DAILY bupropion HCl XL 150 mg PO QAM 90 days buspirone 5 mg PO TID PRN 90 days cyclobenzaprine 5 mg PO BEDTIME escitalopram oxalate 20 mg PO DAILY 90 days loratadine (Claritin) 10 mg PO DAILY PRN multivitamin (Daily Multi-Vitamin tablet) 1 tab PO DAILY norethindrone-e.estradiol-iron 1.5 mg-30 mcg (21)/75 mg (7) ( FE 1.5/30 (28)) 1 tab PO DAILY oxybutynin chloride ER 10 mg PO DAILY phentermine 37.5 mg PO DAILY 30 days Tobacco use date assessed: 11/24/24 Dental Screening Dental Screen Date: 11/24/24 Did you have a dental visit in the last 12 months?: Yes Did you have a dental problem in the last 6 months where you did not have access to dental care?: No Was dental information given to patient?: Patient has dentist HPI 6 weeks f/up HPI Details The patient is a 44-year-old female presenting with weight management - Ongoing weight management efforts include phentermine use and regular physical activities, with a noted plateau in weight loss even with unchanged exercise and dietary habits. - Introduction of Topamax was suggested to aid weight management and provide mood stabilization due to its effects in preventing migraines. - Prior history includes depression managed with bupropion, and anxiety managed with buspirone and escitalopram medication. Problem List - Obesity - Depression - Anxiety - Migraine Patient Instructions - Start taking Topamax as prescribed. - Pay attention to any unusual feelings and discontinue if adverse effects occur. - Continue regular physical activity, including walking, light weight lifting, and yoga. - Monitor new medication interactions with existing regimen, especially regarding depression and anxiety medications. - Return for follow-up in one month. Review of Systems - Neurological: Reports sharp shooting pain. - Psychiatric: Reports feeling a plateau in weight management. 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 Skin: Normal turgor [facility] Medical History Chronic lower back pain Depression, major, recurrent Anxiety, generalized Surgical History No pertinent past surgical history Family History Father HTN (hypertension) Diabetes mellitus Mother HTN (hypertension) Mental health disorder Maternal Grandmother Mental health disorder Social History Housing: House Patient Tobacco Use Status: Never used Tobacco e-Cigarette/Vaping Use: Never Used service: No Current occupational status: employed Cognitive needs: No Hearing needs: No Vision needs: Yes (contacts) Questionnaire PHQ-9 Over the last 2 weeks, how often have you been bothered by any of the following problems? 1. Little interest or pleasure in doing things: more than half the days 2. Feeling down, depressed, or hopeless: more than half the days 3. Trouble falling or staying asleep, or sleeping too much: nearly every day 4. Feeling tired or having little energy: more than half the days 5. Poor appetite or overeating: not at all 6. Feeling bad about yourself - or that you are a failure or have let yourself or your family down: several days 7. Trouble concentrating on things, such as reading the newspaper or watching television: more than half the days 8. Moving or speaking so slowly that other people could have noticed. Or the opposite - being so fidgety or restless that you have been moving around a lot more than usual: several days 9. Thoughts that you would be better off or of hurting yourself in some way: not at all Total score: 13 Depression Screening Interpretation: Positive Depression Screening Follow-up: Existing condition and In treatment Depression Screening Done: Yes 37001 - PHQ-9 Billing: Yes Source: Developed by Drs. Lexa Bermudez, Neeru Ratliff, Blaine Aguilera and colleagues, with an educational mohit from [employer]. Thrive Questionnaire Date Thrive assessed: 11/24/24 I am a: Patient What is your living situation today?: I have a steady place to live Within the past 12 months, did the food you bought not last and you didn't have the money to get more?: Never true Within the past 12 months, did you worry whether your food would run out before you got money to buy more?: Never true Do you have trouble paying for medicines?: No Do you have trouble getting transportation to medical appointments?: No Do you have trouble paying your heating and electricity bill?: No Do you have trouble taking care of your child, family member or friend?: No Do you have trouble with day-to-day activities such as bathing, preparing meals, shopping, managing finances, etc.?: No Are you currently unemployed and looking for a job?: No Are you interested in more education?: No Please select the resources that you would like help with: None Currently or been in a relationship where the following occur: No concerns reported THRIVE Score: 0 AUDIT C Alcohol Use Questionnaire (AUDIT-C) 1. How often do you have a drink containing alcohol?: Monthly or less 2. How many drinks containing alcohol do you have on a typical day when you are drinking?: 1 or 2 3. How often do you have six or more drinks on one occasion?: Never Total Score: 1 ZANE-7 AMB Questionnaire ZANE-7 Date ZANE - 7 assessed: 11/24/24 Feeling nervous, anxious, or on edge: 3 = Nearly every day Not being able to stop or control worryin = Nearly every day Worrying too much about different things: 3 = Nearly every day Trouble relaxin = More than half the days Being so restless that it is hard to sit still: 2 = More than half the days Becoming easily annoyed or irritable: 3 = Nearly every day Feeling afraid as if something awful might happen: 1 = Several days Total ZANE-7 score (0-4 normal; 5-9 mild; 10-14 moderate; 15-21 severe): 17 Source: Developed by Drs. Lexa Bermudez, Neeru Ratliff, Blaine Aguilera and colleagues, with an educational mohit from [employer]. ZANE-7 Assessment Billing ZANE-7 Assessment Tool: ZANE-7 Assessment 15243 Physical exam (Primary Care) Vital Signs: Last Vital Signs Pulse 62 11/24/24 15:22 BP 116/78 11/24/24 15:22 Pulse Ox 100 11/24/24 15:22 Oxygen Delivery Method Room Air 11/24/24 15:22 BMI result Body Mass Index 31.8 Tobacco/Smoking Status: Tobacco use Status Tobacco use date assessed 11/24/24 11/24/24 15:26 Patient Tobacco Use Status Never used Tobacco 11/24/24 15:26 e-Cigarette/Vaping Use Never Used 11/24/24 15:26 PHQ-9: PHQ-9 Score PHQ-9: Total score 13 11/24/24 15:26 Depression Screening Interpretation: Positive Depression Screening Follow-up: Existing condition and In treatment Thrive Assessment: Date of Thrive Assessment Date Thrive assessed 11/24/24 11/24/24 15:26 Currently or been in a relationship where the following occur: No concerns reported Coding Level of Care Code Est Pt Level 3 (70521) Diagnoses Class 2 obesity due to excess calories without serious comorbidity with body mass index (BMI) of 35.0 to 35.9 in adult E66.09; Z68.35 Obesity classification: adult class 2 (BMI 35 - 39.9) Serious obesity comorbidity presence: without serious comorbidity Body mass index: BMI 35.0-35.9 Recurrent major depressive disorder, in partial remission F33.41 Active/Remission status: in partial remission Anxiety, generalized F41.1 Additional Codes ZANE-7 Assessment Billing - ZANE-7 Assessment Tool: ZANE-7 Assessment 40109 ([id number]) PHQ-9 - 55851 - PHQ-9 Billing: Yes ([id number]) Assessment & Plan Assessment & Plan (1) Obesity due to excess calories: Code(s): E66.09 - Other obesity due to excess calories Category: Medical Qualifiers: Obesity classification: adult class 2 (BMI 35 - 39.9) Serious obesity comorbidity presence: without serious comorbidity Body mass index: BMI 35.0-35.9 Qualified Code(s): E66.09 - Other obesity due to excess calories; Z68.35 - Body mass index [BMI] 35.0-35.9, adult (2) Depression, major, recurrent: Code(s): F33.9 - Major depressive disorder, recurrent, unspecified Category: Medical Qualifiers: Active/Remission status: in partial remission Qualified Code(s): F33.41 - Major depressive disorder, recurrent, in partial remission (3) Anxiety, generalized: Code(s): F41.1 - Generalized anxiety disorder Category: Medical Plan The patient is a 44-year-old female presenting with weight management - Ongoing weight management efforts include phentermine use and regular physical activities, with a noted plateau in weight loss even with unchanged exercise and dietary habits. - Introduction of Topamax was suggested to aid weight management and provide mood stabilization due to its effects in preventing migraines. - Prior history includes depression managed with bupropion, and anxiety managed with buspirone and escitalopram medication. Problem List - Obesity - Depression - Anxiety - Migraine Patient Instructions - Start taking Topamax as prescribed. - Pay attention to any unusual feelings and discontinue if adverse effects occur. - Continue regular physical activity, including walking, light weight lifting, and yoga. - Monitor new medication interactions with existing regimen, especially regarding depression and anxiety medications. - Return for follow-up in one month. Medications: New topiramate (Topamax) 25 mg PO DAILY 30 tabs 0RF Refilled phentermine must administer 30 minutes before or 1-2 hours after breakfast 37.5 mg PO DAILY 30 days 30 tabs 0RF
== END 2024-11-24 15:36 | disposition home or self-care (01) ==
PROVIDERS: PCP Internal Medicine; Visit Provider Internal Medicine
DX: E66.09 Other obesity due to excess calories (principal); Z68.35 Body mass index [BMI] 35.0-35.9, adult; F33.41 Major depressive disorder, recurrent, in partial remission; F41.1 Generalized anxiety disorder

== ENCOUNTER → 2024-11-24 15:17 | Outpatient (BNVA) | payer OTHER, SELFPAY | PROVIDERS: PCP Internal Medicine; Visit Provider Internal Medicine | DX: E66.09 Other obesity due to excess calories (principal); Z68.35 Body mass index [BMI] 35.0-35.9, adult; F33.41 Major depressive disorder, recurrent, in partial remission; F41.1 Generalized anxiety disorder | CPT/HCPCS: 96127 ==

== ENCOUNTER 2025-01-02 15:19 | Outpatient (AMB) | payer OTHER, SELFPAY ==
[2025-01-02 15:37] VITALS: BP 110/74; PULSE 68; O2SAT 98; BMI 31.1
--- NOTE | 2025-01-02 15:37 | MHC.PC.OV ---
Vital Signs 01/02/25 15:37 Height 5 ft 5 in Weight 187 lb BMI 31.1 BP 110/74 Blood Pressure Location Lt brachial Position Sitting Pulse 68 Pulse Source Pulse Oximeter Pulse Oximetry (%) 98 Oxygen Delivery Method Room Air Intake Visit Reasons: 1m f/u Allergies No Known Allergies Allergy (Verified 01/02/25 15:40) Tobacco use date assessed: 01/02/25 Dental Screening Dental Screen Date: 01/02/25 Did you have a dental visit in the last 12 months?: Yes Did you have a dental problem in the last 6 months where you did not have access to dental care?: No Was dental information given to patient?: Patient has dentist HPI 1m f/u HPI Details History - The patient is a 44-year-old female presenting with weight management concerns. - Reports a decrease in weight from 191 pounds in October to 184 pounds currently, based on self-reported measurements three days ago. - No adverse side effects experienced from any dietary or lifestyle modifications undertaken. - Awareness of potential weight fluctuations due to hydration or eating patterns was acknowledged. - Observed a positive trend in her weight loss efforts, which is regarded as beneficial. Problem List - Weight Management Patient Instructions - Continue to monitor weight regularly at home. - Report your weight monthly through the patient portal. - Schedule a follow-up appointment in three months. - notify me of your weight before I send refill of your phentermine in 1 month. - Remember to take medications as prescribed. Review of Systems - General: No fever no chills - Neurological: No headaches no dizziness - Ear nose throat: No sore throat no hearing difficulty no ear pain - Cardiovascular: No syncope, no chest pain, no palpitations - Gastrointestinal: No nausea vomiting or diarrhea - Endocrine: No polyuria polydipsia no heat intolerance - Genitourinary: No dysuria , no blood in urine Physical Exam - General: No acute distress - HEENT: No acute findings - Neck: Supple - Respiratory system: Able to talk in full sentences, no audible wheeze - cardiovascular: S1-S2 regular in rate and rhythm - Gastrointestinal: No pain - Extremities: No new findings - 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 motor 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 - Skin: Normal turgor [facility] Medical History Chronic lower back pain Depression, major, recurrent Anxiety, generalized Surgical History No pertinent past surgical history Family History Father HTN (hypertension) Diabetes mellitus Mother HTN (hypertension) Mental health disorder Maternal Grandmother Mental health disorder Social History Housing: House Patient Tobacco Use Status: Never used Tobacco e-Cigarette/Vaping Use: Never Used service: No Current occupational status: employed Cognitive needs: No Hearing needs: No Vision needs: Yes (contacts) Questionnaire Thrive Questionnaire Date Thrive assessed: 01/02/25 I am a: Patient What is your living situation today?: I have a steady place to live Within the past 12 months, did the food you bought not last and you didn't have the money to get more?: Never true Within the past 12 months, did you worry whether your food would run out before you got money to buy more?: Never true Do you have trouble paying for medicines?: No Do you have trouble getting transportation to medical appointments?: No Do you have trouble paying your heating and electricity bill?: No Do you have trouble taking care of your child, family member or friend?: No Do you have trouble with day-to-day activities such as bathing, preparing meals, shopping, managing finances, etc.?: No Are you currently unemployed and looking for a job?: No Are you interested in more education?: No Please select the resources that you would like help with: None Currently or been in a relationship where the following occur: No concerns reported THRIVE Score: 0 AUDIT C Alcohol Use Questionnaire (AUDIT-C) 1. How often do you have a drink containing alcohol?: Monthly or less 2. How many drinks containing alcohol do you have on a typical day when you are drinking?: 1 or 2 3. How often do you have six or more drinks on one occasion?: Never Total Score: 1 ZANE-7 AMB Questionnaire ZANE-7 Date ZANE - 7 assessed: 11/24/24 Source: Developed by Drs. Lexa Bermudez, Neeru Ratliff, Blaine Aguilera and colleagues, with an educational mohit from [employer]. Physical exam (Primary Care) Vital Signs: Last Vital Signs Pulse 68 01/02/25 15:37 BP 110/74 01/02/25 15:37 Pulse Ox 98 01/02/25 15:37 Oxygen Delivery Method Room Air 01/02/25 15:37 BMI result Body Mass Index 31.1 Tobacco/Smoking Status: Tobacco use Status Tobacco use date assessed 01/02/25 01/02/25 15:40 Patient Tobacco Use Status Never used Tobacco 01/02/25 15:40 e-Cigarette/Vaping Use Never Used 01/02/25 15:40 Thrive Assessment: Date of Thrive Assessment Date Thrive assessed 01/02/25 01/02/25 15:40 Currently or been in a relationship where the following occur: No concerns reported Coding Level of Care Code Est Pt Level 3 (02407) Diagnoses Class 2 obesity due to excess calories without serious comorbidity with body mass index (BMI) of 35.0 to 35.9 in adult E66.09; Z68.35 Obesity classification: adult class 2 (BMI 35 - 39.9) Serious obesity comorbidity presence: without serious comorbidity Body mass index: BMI 35.0-35.9 Assessment & Plan Assessment & Plan (1) Obesity due to excess calories: Code(s): E66.09 - Other obesity due to excess calories Category: Medical Qualifiers: Obesity classification: adult class 2 (BMI 35 - 39.9) Serious obesity comorbidity presence: without serious comorbidity Body mass index: BMI 35.0-35.9 Qualified Code(s): E66.09 - Other obesity due to excess calories; Z68.35 - Body mass index [BMI] 35.0-35.9, adult Plan History - The patient is a 44-year-old female presenting with weight management concerns. - Reports a decrease in weight from 191 pounds in October to 184 pounds currently, based on self-reported measurements three days ago. - No adverse side effects experienced from any dietary or lifestyle modifications undertaken. - Awareness of potential weight fluctuations due to hydration or eating patterns was acknowledged. - Observed a positive trend in her weight loss efforts, which is regarded as beneficial. Problem List - Weight Management Patient Instructions - Continue to monitor weight regularly at home. - Report your weight monthly through the patient portal. - Schedule a follow-up appointment in three months. - notify me of your weight before I send refill of your phentermine in 1 month. - Remember to take medications as prescribed. Medications: Refilled phentermine must administer 30 minutes before or 1-2 hours after breakfast 37.5 mg PO DAILY 30 days 30 tabs 0RF topiramate (Topamax) 25 mg PO DAILY 30 tabs 0RF
== END 2025-01-02 15:44 | disposition home or self-care (01) ==
LOC: HO.HMCC 15:35
PROVIDERS: PCP Internal Medicine; Visit Provider Internal Medicine
DX: E66.09 Other obesity due to excess calories (principal); Z68.35 Body mass index [BMI] 35.0-35.9, adult

== ENCOUNTER 2025-04-10 08:45 | Outpatient (AMB) | payer OTHER, SELFPAY ==
--- NOTE | 2025-04-10 08:47 | MHC.PC.OV ---
Vital Signs 04/10/25 08:49 Height 5 ft 5 in Weight 184 lb BMI 30.6 BP 116/82 Blood Pressure Location Rt brachial Position Sitting Pulse 56 Pulse Source Pulse Oximeter Temp 98.6 F Temp Source Oral Pulse Oximetry (%) 97 Oxygen Delivery Method Room Air Intake Visit Reasons: 3m f/u Allergies No Known Allergies Allergy (Verified 04/10/25 08:50) Medication List - Last Reconciled 04/10/25 by Carter Roblero MD atenolol 25 mg PO DAILY bupropion HCl XL 150 mg PO QAM 90 days buspirone 5 mg PO TID PRN 90 days cyclobenzaprine 5 mg PO BEDTIME escitalopram oxalate 20 mg PO DAILY 90 days loratadine (Claritin) 10 mg PO DAILY PRN multivitamin (Daily Multi-Vitamin tablet) 1 tab PO DAILY norethindrone-e.estradiol-iron 1.5 mg-30 mcg (21)/75 mg (7) ( FE 1.5/30 (28)) 1 tab PO DAILY oxybutynin chloride ER 10 mg PO DAILY phentermine 37.5 mg PO DAILY 30 days topiramate (Topamax) 25 mg PO DAILY Tobacco use date assessed: 04/10/25 Dental Screening Dental Screen Date: 04/10/25 Did you have a dental visit in the last 12 months?: Yes Did you have a dental problem in the last 6 months where you did not have access to dental care?: No Was dental information given to patient?: Patient has dentist HPI 3m f/u HPI Details History - The patient is a 44-year-old female presenting with a routine follow-up for weight management. - The patient reports being in a weight loss program and has experienced some weight loss since December, from 187 lbs to 184 lbs. - The patient feels she has lost more inches as her clothes fit looser. - Although weight loss has slowed, the patient walks regularly but is limited in duration due to fibromyalgia or arthritis causing pain. - The patient mentions left hip pain which has been persistent since childbirth, exacerbated by walking for extended periods. - Reports stress due to recent family events, possibly impacting weight and health. - The patient has been taking Phentermine and Topiramate for weight management. - No current significant issues with depression, anxiety, or major mood fluctuations; however, on multiple medications for mood stabilization. - Complaints of a painful finger cyst present for about six weeks without prior trauma or clear etiology. Medical History: - Obesity with engagement in a weight management program - Depression - Anxiety - Fibromyalgia - Hyperhidrosis managed by dermatology Social History: - Engages in walking as a form of exercise despite limitations from fibromyalgia and arthritis. - Reports involvement in family matters and recent increased stress levels due to the passing of a family member. - Parenting responsibilities; mentioned taking walks [place] places [place] with her daughter. Medications - Atenolol 25 mg - Bupropion - Buspirone - Escitalopram (Lexapro) - Cyclobenzaprine (at bedtime) - Oxybutynin for hyperhidrosis (microstrategy reports developer-prescribed) - Topiramate - Phentermine (recently taken last dose) Problem List - Obesity - Depression - Anxiety - Fibromyalgia - Hyperhidrosis - Possible tendon cyst on finger right index middle part Diagnostic results - Labs: Pending as ordered for routine follow-up in greater than six months [place] [facility] [place] managing hyperhidrosis with Oxybutynin Patient Instructions - Continue current medications as prescribed. - Follow up with dermatology regarding the finger cyst. - Apply pressure with bandage for cyst management. - Engage in physical activity as tolerated, such as walking. - Proceed with pre-ordered labs for routine monitoring. Review of Systems General: No fever no chills neurological: No headaches no dizziness ear nose throat: No sore throat no hearing difficulty no ear pain cardiovascular: No syncope, no chest pain, no palpitations gastrointestinal: No nausea vomiting or diarrhea endocrine: No polyuria polydipsia no heat intolerance genitourinary: No dysuria skin: No new complaints Physical Exam general: No acute distress HEENT: No acute findings neck: Supple respiratory system: Able to talk in full sentences, no audible wheeze no stridor cardiovascular: S1-S2 RRR, no palpitations, no chest pains gastrointestinal: No pain extremities: Pain in left hip and feet, cyst on finger right index middle part [employer] MANAGER: Alert awake oriented x3 motor 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 skin: Normal turgor, cyst on finger [facility] Medical History Chronic lower back pain Depression, major, recurrent Anxiety, generalized Surgical History No pertinent past surgical history Family History Father HTN (hypertension) Diabetes mellitus Mother HTN (hypertension) Mental health disorder Maternal Grandmother Mental health disorder Social History Housing: House Patient Tobacco Use Status: Never used Tobacco e-Cigarette/Vaping Use: Never Used service: No Current occupational status: employed Cognitive needs: No Hearing needs: No Vision needs: Yes (contacts) Questionnaire Thrive Questionnaire Date Thrive assessed: 11/21/24 I am a: Patient What is your living situation today?: I have a steady place to live Within the past 12 months, did the food you bought not last and you didn't have the money to get more?: Never true Within the past 12 months, did you worry whether your food would run out before you got money to buy more?: Never true Do you have trouble paying for medicines?: No Do you have trouble getting transportation to medical appointments?: No Do you have trouble paying your heating and electricity bill?: No Do you have trouble taking care of your child, family member or friend?: No Do you have trouble with day-to-day activities such as bathing, preparing meals, shopping, managing finances, etc.?: No Are you currently unemployed and looking for a job?: No Are you interested in more education?: No Please select the resources that you would like help with: None Currently or been in a relationship where the following occur: No concerns reported THRIVE Score: 0 ZANE-7 AMB Questionnaire ZANE-7 Date ZANE - 7 assessed: 11/24/24 Source: Developed by Drs. Lexa Bermudez, Neeru Ratliff, Blaine Aguilera and colleagues, with an educational mohit from [employer]. Physical exam (Primary Care) Vital Signs: Last Vital Signs Temp 98.6 F 04/10/25 08:49 Pulse 56 04/10/25 08:49 BP 116/82 04/10/25 08:49 Pulse Ox 97 04/10/25 08:49 Oxygen Delivery Method Room Air 04/10/25 08:49 BMI result Body Mass Index 30.6 Tobacco/Smoking Status: Tobacco use Status Tobacco use date assessed 04/10/25 04/10/25 08:53 Patient Tobacco Use Status Never used Tobacco 04/10/25 08:53 e-Cigarette/Vaping Use Never Used 04/10/25 08:53 Thrive Assessment: Date of Thrive Assessment Date Thrive assessed 11/21/24 04/10/25 08:53 Currently or been in a relationship where the following occur: No concerns reported Coding Level of Care Code Est Pt Level 4 (85926) Diagnoses Anxiety, generalized F41.1 Hypertension, essential I10 Ganglion cyst of finger of right hand M67.441 Headache syndrome G44.89 Recurrent major depressive disorder, in partial remission F33.41 Active/Remission status: in partial remission Environmental allergies Z91.09 Class 2 obesity due to excess calories without serious comorbidity with body mass index (BMI) of 35.0 to 35.9 in adult E66.09; Z68.35 Body mass index: BMI 35.0-35.9 Obesity classification: adult class 2 (BMI 35 - 39.9) Serious obesity comorbidity presence: without serious comorbidity Fibromyalgia M79.7 Assessment & Plan Assessment & Plan (1) Anxiety, generalized: Code(s): F41.1 - Generalized anxiety disorder Category: Medical (2) Hypertension, essential: Code(s): I10 - Essential (primary) hypertension Category: Medical (3) Ganglion cyst of finger of right hand: Code(s): M67.441 - Ganglion, right hand Category: Medical (4) Headache syndrome: Code(s): G44.89 - Other headache syndrome Category: Medical (5) Depression, major, recurrent: Code(s): F33.9 - Major depressive disorder, recurrent, unspecified Category: Medical Qualifiers: Active/Remission status: in partial remission Qualified Code(s): F33.41 - Major depressive disorder, recurrent, in partial remission (6) Environmental allergies: Code(s): Z91.09 - Other allergy status, other than to drugs and biological substances Category: Medical (7) Obesity due to excess calories: Code(s): E66.09 - Other obesity due to excess calories Category: Medical Qualifiers: Body mass index: BMI 35.0-35.9 Obesity classification: adult class 2 (BMI 35 - 39.9) Serious obesity comorbidity presence: without serious comorbidity Qualified Code(s): E66.09 - Other obesity due to excess calories; Z68.35 - Body mass index [BMI] 35.0-35.9, adult (8) Fibromyalgia: Code(s): M79.7 - Fibromyalgia Category: Medical Plan History - The patient is a 44-year-old female presenting with a routine follow-up for weight management. - The patient reports being in a weight loss program and has experienced some weight loss since December, from 187 lbs to 184 lbs. - The patient feels she has lost more inches as her clothes fit looser. - Although weight loss has slowed, the patient walks regularly but is limited in duration due to fibromyalgia or arthritis causing pain. - The patient mentions left hip pain which has been persistent since childbirth, exacerbated by walking for extended periods. - Reports stress due to recent family events, possibly impacting weight and health. - The patient has been taking Phentermine and Topiramate for weight management. - No current significant issues with depression, anxiety, or major mood fluctuations; however, on multiple medications for mood stabilization. - Complaints of a painful finger cyst present for about six weeks without prior trauma or clear etiology. Medical History: - Obesity with engagement in a weight management program - Depression - Anxiety - Fibromyalgia - Hyperhidrosis managed by dermatology Social History: - Engages in walking as a form of exercise despite limitations from fibromyalgia and arthritis. - Reports involvement in family matters and recent increased stress levels due to the passing of a family member. - Parenting responsibilities; mentioned taking walks in places [place] with her daughter. Medications - Atenolol 25 mg - Bupropion - Buspirone - Escitalopram (Lexapro) - Cyclobenzaprine (at bedtime) - Oxybutynin for hyperhidrosis (microstrategy reports developer-prescribed) - Topiramate - Phentermine (recently taken last dose) Problem List - Obesity - Depression - Anxiety - Fibromyalgia - Hyperhidrosis - Possible tendon cyst on finger right index middle part Diagnostic results - Labs: Pending as ordered for routine follow-up in greater than six months [place] [facility] [place] managing hyperhidrosis with Oxybutynin Patient Instructions - Continue current medications as prescribed. - Follow up with dermatology regarding the finger cyst. - Apply pressure with bandage for cyst management. - Engage in physical activity as tolerated, such as walking. - Proceed with pre-ordered labs for routine monitoring. Orders: Orders Lipid Panel Today E66.09 - Other obesity due to excess calories, F33.41 - Major depressive disorder, recurrent, in partial remission, F41.1 - Generalized anxiety disorder, G44.89 - Other headache syndrome, I10 - Essential (primary) hypertension, M79.7 - Fibromyalgia, Z68.35 - Body mass index [BMI] 35.0-35.9, adult, Z91.09 - Other allergy status, other than to drugs and biological substances Vitamin D 25-OH (D2 and D3) Today E66.09 - Other obesity due to excess calories, F33.41 - Major depressive disorder, recurrent, in partial remission, F41.1 - Generalized anxiety disorder, G44.89 - Other headache syndrome, I10 - Essential (primary) hypertension, M79.7 - Fibromyalgia, Z68.35 - Body mass index [BMI] 35.0-35.9, adult, Z91.09 - Other allergy status, other than to drugs and biological substances Complete Blood Count Auto Diff Today E66.09 - Other obesity due to excess calories, F33.41 - Major depressive disorder, recurrent, in partial remission, F41.1 - Generalized anxiety disorder, G44.89 - Other headache syndrome, I10 - Essential (primary) hypertension, M79.7 - Fibromyalgia, Z68.35 - Body mass index [BMI] 35.0-35.9, adult, Z91.09 - Other allergy status, other than to drugs and biological substances Comprehensive [place]. Panel Fast Today E66.09 - Other obesity due to excess calories, F33.41 - Major depressive disorder, recurrent, in partial remission, F41.1 - Generalized anxiety disorder, G44.89 - Other headache syndrome, I10 - Essential (primary) hypertension, M79.7 - Fibromyalgia, Z68.35 - Body mass index [BMI] 35.0-35.9, adult, Z91.09 - Other allergy status, other than to drugs and biological substances Vitamin B12 Today E66.09 - Other obesity due to excess calories, F33.41 - Major depressive disorder, recurrent, in partial remission, F41.1 - Generalized anxiety disorder, G44.89 - Other headache syndrome, I10 - Essential (primary) hypertension, M79.7 - Fibromyalgia, Z68.35 - Body mass index [BMI] 35.0-35.9, adult, Z91.09 - Other allergy status, other than to drugs and biological substances TSH reflex Free T4 Today E66.09 - Other obesity due to excess calories, F33.41 - Major depressive disorder, recurrent, in partial remission, F41.1 - Generalized anxiety disorder, G44.89 - Other headache syndrome, I10 - Essential (primary) hypertension, M79.7 - Fibromyalgia, Z68.35 - Body mass index [BMI] 35.0-35.9, adult, Z91.09 - Other allergy status, other than to drugs and biological substances Medications: Refilled phentermine must administer 30 minutes before or 1-2 hours after breakfast 37.5 mg PO DAILY 30 days 30 tabs 0RF
[2025-04-10 08:49] VITALS: BP 116/82; PULSE 56; TEMP 37; O2SAT 97; BMI 30.6
== END 2025-04-10 09:27 | disposition home or self-care (01) ==
LOC: HO.HMCC 08:46
PROVIDERS: PCP Internal Medicine; Visit Provider Internal Medicine
DX: F41.1 Generalized anxiety disorder (principal); I10 Essential (primary) hypertension; M67.441 Ganglion, right hand; G44.89 Other headache syndrome; F33.41 Major depressive disorder, recurrent, in partial remission; Z91.09 Other allergy status, other than to drugs and biological substances; E66.09 Other obesity due to excess calories; Z68.35 Body mass index [BMI] 35.0-35.9, adult; M79.7 Fibromyalgia

== ENCOUNTER 2025-04-10 08:45 | Outpatient (REF) | payer OTHER, SELFPAY ==
[2025-04-10 10:21] LABS: MANUAL DIFF FLAG NO
[2025-04-10 10:27] LABS: Basophils Percent Auto 0.7 % (0-2); Eosinophils Absolute Auto 0.1 X10*3/uL (0.0-0.4); Eosinophils Percent Auto 1.4 % (0-4); Hematocrit 41.1 % (37.0-47.0); Hemoglobin 13.8 g/dl (12.0-16.0); Imm Gran Abs Auto 0.02 X10*3/uL (0.00-0.03); Imm Gran Pct Auto 0.3 % (0.0-0.4); Lymphocytes Absolute Auto 1.5 X10*3/uL (1.2-4.9); Lymphocytes Percent Auto 26.1 % (20-40); Mean Corpuscular HGB Conc 33.6 g/dl (31.0-35.0); Mean Corpuscular Hemoglobin 30.9 pg (27.0-33.0); Mean Corpuscular Volume 92.2 fL (80.0-98.0); Monocytes Absolute Auto 0.4 X10*3/uL (0.1-1.2); Monocytes Percent Auto 6.8 % (2-11); Neutrophils Absolute Auto 3.8 x10*3/uL (2.0-8.3); Neutrophils Percent Auto 64.7 % (45-73); Platelet Count 312 X10*3/uL (160-400); Red Blood Count 4.46 X10*6/uL (4.20-5.50); Red Cell Distribution Width 12.8 % (11.0-16.0); White Blood Count 5.9 X10*3/uL (4.8-10.8)
[2025-04-10 11:24] LABS: Alanine Aminotransferase 17 U/L (0-31); Albumin Level 4.1 g/dL (3.5-5.0); Alkaline Phosphatase 75 U/L (39-117); Anion Gap 10 (12-20); Aspartate Amino Transferase 17 U/L (5-31); Bilirubin Total 0.4 mg/dL (0.0-1.0); Blood Urea Nitrogen 12 mg/dL (9-16); Calcium 8.9 mg/dL (8.4-10.2); Carbon Dioxide 25 mmol/L (22-29); Chloride 112 mmol/L (96-108); Cholesterol 148 mg/dL (<200); Estimated Glomerular Filt Rate 58; Glucose Fasting 92 mg/dL (60-99); HDL Cholesterol 40 mg/dL (>40); LDL Cholesterol Calculated 91 mg/dL (<100); Potassium 4.4 mmol/L (3.3-5.1); Sodium 143 mmol/L (135-145); Total Protein 6.5 g/dL (6.5-8.0); Triglycerides 85 mg/dL (<150)
[2025-04-10 11:27] LABS: TSH reflex Free T4 1.13 uIU/mL (0.32-4.0)
[2025-04-10 11:33] LABS: Vitamin B12 320 pg/mL (200-900)
[2025-04-13 18:53] LABS: Vitamin D 25-OH, D2 <4 ng/mL; Vitamin D 25-OH, D3 36 ng/mL; Vitamin D 25-OH, Total 36 ng/mL (30-100)
== END 2025-04-10 08:46 | disposition home or self-care (01) ==
LOC: HO.HMGCLDS 08:45
PROVIDERS: PCP Internal Medicine; Visit Provider Internal Medicine
DX: F41.1 Generalized anxiety disorder (principal); Z68.35 Body mass index [BMI] 35.0-35.9, adult; E66.09 Other obesity due to excess calories; F33.41 Major depressive disorder, recurrent, in partial remission; Z91.09 Other allergy status, other than to drugs and biological substances; M79.7 Fibromyalgia; G44.89 Other headache syndrome; I10 Essential (primary) hypertension
CPT/HCPCS: 36415; 80053; 80061; 82306; 82607; 84443; 85025

== ENCOUNTER 2025-07-17 12:06 | Outpatient (AMB) | payer OTHER, SELFPAY ==
--- NOTE | 2025-07-17 12:08 | MHC.PC.OV ---
Vital Signs 07/17/25 12:09 Height 5 ft 5 in Weight 183 lb BMI 30.4 BP 120/80 Blood Pressure Location Lt brachial Position Sitting Pulse 62 Pulse Source Pulse Oximeter Pulse Oximetry (%) 98 Intake Visit Reasons: 3m follow up Allergies No Known Allergies Allergy (Verified 07/17/25 12:11) Medication List - Last Reconciled 07/17/25 by Carter Roblero MD atenolol 25 mg PO DAILY bupropion HCl XL 150 mg PO QAM 90 days buspirone 5 mg PO TID PRN 90 days cyclobenzaprine 5 mg PO BEDTIME escitalopram oxalate 20 mg PO DAILY 90 days loratadine (Claritin) 10 mg PO DAILY PRN multivitamin (Daily Multi-Vitamin tablet) 1 tab PO DAILY norethindrone-e.estradiol-iron 1.5 mg-30 mcg ()/75 mg (7) (June FE 1.5/30 ()) 1 tab PO DAILY oxybutynin chloride ER 10 mg PO DAILY phentermine 37.5 mg PO DAILY 30 days topiramate (Topamax) 25 mg PO DAILY Tobacco use date assessed: 04/10/25 Dental Screening Dental Screen Date: 04/10/25 HPI 3m follow up HPI Details History The patient is a 44-year-old female presenting with weight management and medication review. Weight Management: - The patient is on phentermine and topiramate for weight loss. - BMI is currently 30.5. - Weight is 133 lbs; previously 134 lbs as of April 10, showing a 1-pound weight loss. - Initial weight in September was 193 lbs, indicating a total of 60 pounds lost over a broader timeframe. - Reports losing inches as clothing fits more loosely despite minimal weight change. - Minimal exercise is performed. Kidney function concern: - Previous labs indicate slightly compromised kidney function, with a GFR of 58. - we will continue to monitor for now Fibromyalgia and Pain Management: Initially through neurology Dr. Richards but has not seen him in a while - Historical diagnosis of fibromyalgia. - Increased pain in the last 3-4 months. - Previously on gabapentin and amitriptyline but not currently. - Reports sharp shooting pains, primarily in arms, impacting daily activities. - Paresthesia noted, but neuropathy not confirmed. 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 - Exercises minimally. - Reports recent increase in pain, affecting work-related activities like writing. Family History: - Reports mother having kidney problems; specifics are unclear. Problem List - Obesity - Impaired Kidney Function - Fibromyalgia - Depression - Urinary Urgency Diagnostic results - GFR: 58 - Liver enzymes: Stable - LDL: 91 - TSH: 1.13 [place] [facility] Care - Previously seen by Dr. Faith for fibromyalgia management but currently not under his care. Patient Instructions - Continue medication for another three months and monitor weight loss. - Increase physical activity as feasible. - Repeat blood tests in three months to reassess kidney function. - Monitor and report any changes or worsening of symptoms. - depression medication switched to duloxetine from Lexapro for pain management. 20 mg b.i.d. Follow-up 11 weeks Review of Systems General: No fever no chills neurological: no dizziness ear nose throat: No sore throat no hearing difficulty no ear pain cardiovascular: No syncope, no chest pain, no palpitations gastrointestinal: No nausea vomiting or diarrhea endocrine: No polyuria polydipsia no heat intolerance genitourinary: No dysuria skin: No new complaints Physical Exam general: No acute distress HEENT: No acute findings neck: Supple respiratory system: Able to talk in full sentences, no audible wheeze no stridor cardiovascular: S1-S2 RRR gastrointestinal: No pain extremities: No new findings [employer]: Alert awake oriented x3 motor 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 skin: Normal turgor Patient was informed and verbally consented to the use of an ambient scribe for clinic note documentation during this visit. [facility] Medical History Chronic lower back pain Depression, major, recurrent Anxiety, generalized Surgical History No pertinent past surgical history Family History Father HTN (hypertension) Diabetes mellitus Mother HTN (hypertension) Mental health disorder Maternal Grandmother Mental health disorder Social History Housing: House Patient Tobacco Use Status: Never used Tobacco e-Cigarette/Vaping Use: Never Used service: No Current occupational status: employed Cognitive needs: No Hearing needs: No Vision needs: Yes (contacts) Questionnaire PHQ-9 Over the last 2 weeks, how often have you been bothered by any of the following problems? 1. Little interest or pleasure in doing things: more than half the days 2. Feeling down, depressed, or hopeless: more than half the days 3. Trouble falling or staying asleep, or sleeping too much: nearly every day 4. Feeling tired or having little energy: more than half the days 5. Poor appetite or overeating: not at all 6. Feeling bad about yourself - or that you are a failure or have let yourself or your family down: several days 7. Trouble concentrating on things, such as reading the newspaper or watching television: more than half the days 8. Moving or speaking so slowly that other people could have noticed. Or the opposite - being so fidgety or restless that you have been moving around a lot more than usual: several days 9. Thoughts that you would be better off or of hurting yourself in some way: not at all Total score: 13 Depression Screening Interpretation: Positive Depression Screening Follow-up: Existing condition and In treatment Depression Screening Done: Yes 82365 - PHQ-9 Billing: Yes Source: Developed by Drs. Lexa Bermudez, Neeru Ratliff, Blaine Aguilera and colleagues, with an educational mohit from [employer]. Thrive Questionnaire Date Thrive assessed: 11/21/24 I am a: Patient What is your living situation today?: I have a steady place to live Within the past 12 months, did the food you bought not last and you didn't have the money to get more?: Never true Within the past 12 months, did you worry whether your food would run out before you got money to buy more?: Never true Do you have trouble paying for medicines?: No Do you have trouble getting transportation to medical appointments?: No Do you have trouble paying your heating and electricity bill?: No Do you have trouble taking care of your child, family member or friend?: No Do you have trouble with day-to-day activities such as bathing, preparing meals, shopping, managing finances, etc.?: No Are you currently unemployed and looking for a job?: No Are you interested in more education?: No Please select the resources that you would like help with: None Currently or been in a relationship where the following occur: No concerns reported THRIVE Score: 0 AUDIT C Alcohol Use Questionnaire (AUDIT-C) 1. How often do you have a drink containing alcohol?: Monthly or less 2. How many drinks containing alcohol do you have on a typical day when you are drinking?: 1 or 2 3. How often do you have six or more drinks on one occasion?: Never Total Score: 1 ZANE-7 AMB Questionnaire ZANE-7 Date ZANE - 7 assessed: 11/24/24 Feeling nervous, anxious, or on edge: 3 = Nearly every day Not being able to stop or control worryin = Nearly every day Worrying too much about different things: 3 = Nearly every day Trouble relaxin = More than half the days Being so restless that it is hard to sit still: 2 = More than half the days Becoming easily annoyed or irritable: 3 = Nearly every day Feeling afraid as if something awful might happen: 1 = Several days Total AZNE-7 score (0-4 normal; 5-9 mild; 10-14 moderate; 15-21 severe): 17 Source: Developed by Drs. Lexa Bermudez, Neeru Ratliff, Blaine Aguilera and colleagues, with an educational mohit from [employer]. ZANE-7 Assessment Billing ZANE-7 Assessment Tool: ZANE-7 Assessment 59530 Physical exam (Primary Care) Vital Signs: Last Vital Signs Pulse 62 07/17/25 12:09 BP 120/80 07/17/25 12:09 Pulse Ox 98 07/17/25 12:09 BMI result Body Mass Index 30.4 Tobacco/Smoking Status: Tobacco use Status Tobacco use date assessed 04/10/25 07/17/25 12:12 Patient Tobacco Use Status Never used Tobacco 07/17/25 12:12 e-Cigarette/Vaping Use Never Used 07/17/25 12:12 PHQ-9: PHQ-9 Score PHQ-9: Total score 13 07/17/25 12:29 Depression Screening Interpretation: Positive Depression Screening Follow-up: Existing condition and In treatment Thrive Assessment: Date of Thrive Assessment Date Thrive assessed 11/21/24 07/17/25 12:12 Currently or been in a relationship where the following occur: No concerns reported Coding Level of Care Code Est Pt Level 4 (84829) Diagnoses Anxiety, generalized F41.1 Recurrent major depressive disorder, in partial remission F33.41 Active/Remission status: in partial remission Environmental allergies Z91.09 Class 2 obesity due to excess calories without serious comorbidity with body mass index (BMI) of 35.0 to 35.9 in adult E66.09; Z68.35 Body mass index: BMI 35.0-35.9 Obesity classification: adult class 2 (BMI 35 - 39.9) Serious obesity comorbidity presence: without serious comorbidity Fibromyalgia M79.7 Headache syndrome G44.89 Hypertension, essential I10 Decreased GFR R94.4 Additional Codes PHQ-9 - 03423 - PHQ-9 Billing: Yes ([id number]) ZANE-7 Assessment Billing - ZANE-7 Assessment Tool: ZANE-7 Assessment [id number] ([id number]) Assessment & Plan Assessment & Plan (1) Anxiety, generalized: Code(s): F41.1 - Generalized anxiety disorder Category: Medical (2) Depression, major, recurrent: Code(s): F33.9 - Major depressive disorder, recurrent, unspecified Category: Medical Qualifiers: Active/Remission status: in partial remission Qualified Code(s): F33.41 - Major depressive disorder, recurrent, in partial remission (3) Environmental allergies: Code(s): Z91.09 - Other allergy status, other than to drugs and biological substances Category: Medical (4) Obesity due to excess calories: Code(s): E66.09 - Other obesity due to excess calories Category: Medical Qualifiers: Body mass index: BMI 35.0-35.9 Obesity classification: adult class 2 (BMI 35 - 39.9) Serious obesity comorbidity presence: without serious comorbidity Qualified Code(s): E66.09 - Other obesity due to excess calories; Z68.35 - Body mass index [BMI] 35.0-35.9, adult (5) Fibromyalgia: Code(s): M79.7 - Fibromyalgia Category: Medical (6) Headache syndrome: Code(s): G44.89 - Other headache syndrome Category: Medical (7) Hypertension, essential: Code(s): I10 - Essential (primary) hypertension Category: Medical (8) Decreased GFR: Code(s): R94.4 - Abnormal results of kidney function studies Category: Medical Plan History The patient is a 44-year-old female presenting with weight management and medication review. Weight Management: - The patient is on phentermine and topiramate for weight loss. - BMI is currently 30.5. - Weight is 133 lbs; previously 134 lbs as of April 10, showing a 1-pound weight loss. - Initial weight in September was 193 lbs, indicating a total of 60 pounds lost over a broader timeframe. - Reports losing inches as clothing fits more loosely despite minimal weight change. - Minimal exercise is performed. Kidney function concern: - Previous labs indicate slightly compromised kidney function, with a GFR of 58. - we will continue to monitor for now Fibromyalgia and Pain Management: Initially through neurology Dr. Richards but has not seen him in a while - Historical diagnosis of fibromyalgia. - Increased pain in the last 3-4 months. - Previously on gabapentin and amitriptyline but not currently. - Reports sharp shooting pains, primarily in arms, impacting daily activities. - Paresthesia noted, but neuropathy not confirmed. 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 - Exercises minimally. - Reports recent increase in pain, affecting work-related activities like writing. Family History: - Reports mother having kidney problems; specifics are unclear. Problem List - Obesity - Impaired Kidney Function - Fibromyalgia - Depression - Urinary Urgency Diagnostic results - GFR: 58 - Liver enzymes: Stable - LDL: 91 - TSH: 1.13 [place] [facility] - Previously seen by Dr. Faith for fibromyalgia management but currently not under his care. Patient Instructions - Continue medication for another three months and monitor weight loss. - Increase physical activity as feasible. - Repeat blood tests in three months to reassess kidney function. - Monitor and report any changes or worsening of symptoms. - depression medication switched to duloxetine from Lexapro for pain management. 20 mg b.i.d. Follow-up 11 weeks Orders: Orders Complete Blood Count Auto Diff Today E66.09 - Other obesity due to excess calories, F33.41 - Major depressive disorder, recurrent, in partial remission, F41.1 - Generalized anxiety disorder, G44.89 - Other headache syndrome, I10 - Essential (primary) hypertension, M79.7 - Fibromyalgia, R94.4 - Abnormal results of kidney function studies, Z68.35 - Body mass index [BMI] 35.0-35.9, adult, Z91.09 - Other allergy status, other than to drugs and biological substances Comprehensive Met. Panel Today E66.09 - Other obesity due to excess calories, F33.41 - Major depressive disorder, recurrent, in partial remission, F41.1 - Generalized anxiety disorder, G44.89 - Other headache syndrome, I10 - Essential (primary) hypertension, M79.7 - Fibromyalgia, R94.4 - Abnormal results of kidney function studies, Z68.35 - Body mass index [BMI] 35.0-35.9, adult, Z91.09 - Other allergy status, other than to drugs and biological substances Medications: New duloxetine 20 mg PO BID 60 caps 2RF Refilled topiramate (Topamax) 25 mg PO DAILY 90 tabs 0RF Discontinued escitalopram oxalate Discontinued Reason: Doctor's Order 20 mg PO DAILY 90 days 90 tabs 0RF
[2025-07-17 12:09] VITALS: BP 120/80; PULSE 62; O2SAT 98; BMI 30.4
== END 2025-07-17 13:46 | disposition home or self-care (01) ==
LOC: HO.HMCC 12:07
PROVIDERS: PCP Internal Medicine; Visit Provider Internal Medicine
DX: F41.1 Generalized anxiety disorder (principal); F33.41 Major depressive disorder, recurrent, in partial remission; Z91.09 Other allergy status, other than to drugs and biological substances; E66.09 Other obesity due to excess calories; Z68.35 Body mass index [BMI] 35.0-35.9, adult; M79.7 Fibromyalgia; G44.89 Other headache syndrome; I10 Essential (primary) hypertension; R94.4 Abnormal results of kidney function studies

== ENCOUNTER → 2025-07-17 12:06 | Outpatient (BNVA) | payer OTHER, SELFPAY | PROVIDERS: PCP Internal Medicine; Visit Provider Internal Medicine | DX: M79.7 Fibromyalgia (principal); F41.1 Generalized anxiety disorder; F33.41 Major depressive disorder, recurrent, in partial remission; E66.09 Other obesity due to excess calories; E66.812 Obesity, class 2; G44.89 Other headache syndrome; I10 Essential (primary) hypertension; R94.4 Abnormal results of kidney function studies; Z91.09 Other allergy status, other than to drugs and biological substances; Z68.30 Body mass index [BMI] 30.0-30.9, adult; Z79.899 Other long term (current) drug therapy | CPT/HCPCS: 96127 ==

== ENCOUNTER 2025-09-24 08:24 | Outpatient (REF) | payer OTHER, SELFPAY ==
[2025-09-24 10:34] LABS: MANUAL DIFF FLAG NO
[2025-09-24 10:44] LABS: Hematocrit 40.4 % (37.0-47.0); Hemoglobin 13.6 g/dl (12.0-16.0); Imm Gran Abs Auto 0.03 X10*3/uL (0.00-0.03); Imm Gran Pct Auto 0.4 % (0.0-0.4); Lymphocytes Absolute Auto 2.5 X10*3/uL (1.2-4.9); Mean Corpuscular HGB Conc 33.7 g/dl (31.0-35.0); Mean Corpuscular Hemoglobin 30.6 pg (27.0-33.0); Mean Corpuscular Volume 91.0 fL (80.0-98.0); NRBC Abs Auto 0.000 X10*3/uL (0.0-0.012); NRBC Pct Auto 0.0 /100WBC (0.0-0.2); Platelet Count 310 X10*3/uL (160-400); Red Blood Count 4.44 X10*6/uL (4.20-5.50); White Blood Count 8.1 X10*3/uL (4.8-10.8)
[2025-09-24 11:45] LABS: Alanine Aminotransferase 13 U/L (0-31); Albumin Level 4.0 g/dL (3.5-5.0); Alkaline Phosphatase 77 U/L (39-117); Anion Gap 9 (12-20); Aspartate Amino Transferase 20 U/L (5-31); Blood Urea Nitrogen 14 mg/dL (9-16); Calcium 8.4 mg/dL (8.4-10.2); Carbon Dioxide 24 mmol/L (22-29); Chloride 112 mmol/L (96-108); Estimated Glomerular Filt Rate 49; Potassium 3.7 mmol/L (3.3-5.1); Sodium 141 mmol/L (135-145); Total Protein 6.5 g/dL (6.5-8.0)
== END 2025-09-24 08:25 | disposition home or self-care (01) ==
LOC: HO.HMGCLDS 08:24
PROVIDERS: PCP Internal Medicine; Visit Provider Internal Medicine
DX: I10 Essential (primary) hypertension (principal); E66.09 Other obesity due to excess calories; M79.7 Fibromyalgia; G44.89 Other headache syndrome; F41.1 Generalized anxiety disorder; F33.41 Major depressive disorder, recurrent, in partial remission; R94.4 Abnormal results of kidney function studies; Z91.09 Other allergy status, other than to drugs and biological substances; Z68.35 Body mass index [BMI] 35.0-35.9, adult
CPT/HCPCS: 36415; 80053; 85025

== ENCOUNTER 2025-09-25 13:10 | Outpatient (AMB) | payer OTHER, SELFPAY ==
[2025-09-25 13:12] VITALS: BP 120/80; PULSE 67; O2SAT 97; BMI 30.8
--- NOTE | 2025-09-25 13:12 | A.OFFPC_ITS ---
Vital Signs 09/25/25 13:12 Height 5 ft 5 in Weight 185 lb BMI 30.8 BP 120/80 Blood Pressure Location Lt brachial Position Sitting Pulse 67 Pulse Source Pulse Oximeter Pulse Oximetry (%) 97 Intake Visit Reasons: PE Allergies No Known Allergies Allergy (Verified 09/25/25 13:13) Medication List - Last Reconciled 09/25/25 by Carter Roblero MD atenolol 25 mg PO DAILY bupropion HCl XL 150 mg PO QAM 90 days buspirone 5 mg PO TID PRN 90 days cyclobenzaprine 5 mg PO BEDTIME duloxetine 20 mg PO BID loratadine (Claritin) 10 mg PO DAILY PRN multivitamin (Daily Multi-Vitamin tablet) 1 tab PO DAILY norethindrone-e.estradiol-iron 1.5 mg-30 mcg ()/75 mg (7) ( FE 1.5/ ()) 1 tab PO DAILY oxybutynin chloride ER 10 mg PO DAILY Tobacco use date assessed: 04/10/25 Dental Screening Dental Screen Date: 04/10/25 HPI HPI Comments History of Present Illness Details History of Present Illness The patient is a 44 year old individual presenting for a Physical and follow-up visit to review recent lab results and for chronic disease management. Chronic Kidney Disease: - The patient's kidney function was slig htly abnormal in March and has worsened on recent labs. - The glomerular filtration rate has dec reased from 58 to 49. - Electrolytes and liver enzymes are nor mal. - The patient has been advised to avoid NSAIDs due to kidney function. Overweight: - The patient has been taking phentermin e and Topamax for weight management, but the weight has plateaued since March despite diet and exercise. - The patient reports exercising 3-4 art es per week, including yoga and using small weights at home. - The patient reports a diet with low ca rbohydrates, no sweets, and avoids salty foods. - While weight has not changed, the carlos ent notes that clothes are fitting more loosely. Health Maintenance: - A mammogram is scheduled for October. - An [facility] appointment was cancelled an d needs to be rescheduled. Medical History: - Depression and anxiety - Back pain - Hypertension, managed with atenolol - Allergies, managed with loratadine - Hyperhidrosis, managed with oxybutynin - Overweight status, previously managed with phentermine and topiramate - History of dense breasts Social History: - Employment: The patient works in a [employer]. - Exercise: The patient exercises 3-4 ti mes a week, which includes yoga and using light weights at home. - Diet: The patient reports avoiding mariella ty foods and sweets, and consumes few carbohydrates. Family History: - Kidney disease: An aunt and a brother were on dialysis. - Diabetes mellitus: Father, aunt, and g randmother had diabetes. - Mother had dense breasts. Health Maintenance - Mammogram: Scheduled for October. - Gynecological exam: Appointment with [facility] needs to be rescheduled. - Skin exam: The patient follows up with a dermatology clinic for skin checks. [place] [facility] - Referral will be placed to Nephrology for declining kidney function. - The patient has an [facility], but the las t appointment was canceled and needs to be rescheduled. - The patient sees a hotel staff member for s kin checks. Medications - Atenolol 25 mg for blood pressure. - Duloxetine for depression and anxiety. - Cyclobenzaprine for back pain. - Loratadine for allergies. - Oxybutynin for sweating. - Phentermine for weight management. - Topiramate (Topamax) for weight manage ment. 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 [employer] Medical History Chronic lower back pain Depression, major, recurrent Anxiety, generalized Surgical History No pertinent past surgical history Family History Father HTN (hypertension) Diabetes mellitus Mother HTN (hypertension) Mental health disorder Maternal Grandmother Mental health disorder Social History Housing: House Patient Tobacco Use Status: Never used Tobacco e-Cigarette/Vaping Use: Never Used service: No Current occupational status: employed Cognitive needs: No Hearing needs: No Vision needs: Yes (contacts) Questionnaire Thrive Questionnaire Date Thrive assessed: 11/21/24 I am a: Patient What is your living situation today?: I have a steady place to live Within the past 12 months, did the food you bought not last and you didn't have the money to get more?: Never true Within the past 12 months, did you worry whether your food would run out before you got money to buy more?: Never true Do you have trouble paying for medicines?: No Do you have trouble getting transportation to medical appointments?: No Do you have trouble paying your heating and electricity bill?: No Do you have trouble taking care of your child, family member or friend?: No Do you have trouble with day-to-day activities such as bathing, preparing meals, shopping, managing finances, etc.?: No Are you currently unemployed and looking for a job?: No Are you interested in more education?: No Please select the resources that you would like help with: None Currently or been in a relationship where the following occur: No concerns reported THRIVE Score: 0 ZANE-7 AMB Questionnaire ZANE-7 Date ZANE - 7 assessed: 11/24/24 Source: Developed by Drs. Lexa Bermudez, Neeru Ratliff, Blaine Aguilera and colleagues, with an educational mohit from [employer]. Review of Systems Narrative Review of Systems - Gen : no fever no chills - Neurological: No headaches no dizziness - Ear nose throat: No sore throat no hearing difficulty no ear pain - Cardiovascular: No syncope, no chest pain, no palpitations - Gastrointestinal: No nausea vomiting or diarrhea - Endocrine: No polyuria polydipsia no heat intolerance - Genitourinary: No dysuria - Skin: No new complaints Physical exam (Primary Care) Vital Signs: Last Vital Signs Pulse 67 09/25/25 13:12 BP 120/80 09/25/25 13:12 Pulse Ox 97 09/25/25 13:12 BMI result Body Mass Index 30.8 Tobacco/Smoking Status: Tobacco use Status Tobacco use date assessed 04/10/25 09/25/25 13:12 Patient Tobacco Use Status Never used Tobacco 09/25/25 13:12 e-Cigarette/Vaping Use Never Used 09/25/25 13:12 Thrive Assessment: Date of Thrive Assessment Date Thrive assessed 11/21/24 09/25/25 13:12 Currently or been in a relationship where the following occur: No concerns reported Narrative Diagnostic results - Labs (from yesterday): - Electrolytes: Normal - Glomerular Filtration Rate (GFR): 49 (decreased from 58 in March). - Liver enzymes: Normal - Imaging: - Mammogram: Scheduled for October. Physical Exam General: Cooperative, healthy appearing, comfortable, no acute distress Orientation: Patient oriented x3 Head: Normal to inspection Ears: Within normal limit visually Nose: Normal external nose present Face and sinus: Normal facial exam Eyes: Appearance normal, extraocular movement intact pupils reactive Neck: Normal visual inspection and supple Respiratory: Normal respiratory effort and able to speak in complete sentences. Clear to auscultation, no stridor Cardiovascular: S1 and S2 RRR Breast exam bengin GI: Normal to inspection. Soft to palpation and nontender Skin: Turgor normal, no acute findings. No skin problems, moles, or rashes noted. Neuro: Patient oriented x3, motor 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, balance intact, tandem pass Extremities: Normal to inspection . Coding Level of Care Code Est Pt Level 4 (67628) Est Pt Prev Care 40-64y(10723) Diagnoses Encounter for general adult medical examination with abnormal findings Z00.01 Decreased GFR R94.4 Hypertension, essential I10 Fibromyalgia M79.7 Chronic bilateral low back pain without sciatica M54.50; G89.29 Back pain laterality: bilateral Sciatica presence: without sciatica Urge incontinence of urine N39.41 Class 2 obesity due to excess calories without serious comorbidity with body mass index (BMI) of 35.0 to 35.9 in adult E66.09; Z68.35 Obesity classification: adult class 2 (BMI 35 - 39.9) Serious obesity comorbidity presence: without serious comorbidity Body mass index: BMI 35.0-35.9 Recurrent major depressive disorder, in partial remission F33.41 Active/Remission status: in partial remission Anxiety, generalized F41.1 Environmental allergies Z91.09 Generalized hyperhidrosis R61 Assessment & Plan Assessment & Plan (1) Encounter for general adult medical examination with abnormal findings: Code(s): Z00.01 - Encounter for general adult medical examination with abnormal findings Category: Medical (2) Decreased GFR: Code(s): R94.4 - Abnormal results of kidney function studies Category: Medical (3) Hypertension, essential: Code(s): I10 - Essential (primary) hypertension Category: Medical (4) Fibromyalgia: Code(s): M79.7 - Fibromyalgia Category: Medical (5) Chronic lower back pain: Code(s): M54.5 - Low back pain; G89.29 - Other chronic pain Category: Medical Qualifiers: Back pain laterality: bilateral Sciatica presence: without sciatica Qualified Code(s): M54.50 - Low back pain, unspecified; G89.29 - Other chronic pain (6) Urge incontinence of urine: Code(s): N39.41 - Urge incontinence Category: Medical (7) Obesity due to excess calories: Code(s): E66.09 - Other obesity due to excess calories Category: Medical Qualifiers: Obesity classification: adult class 2 (BMI 35 - 39.9) Serious obesity comorbidity presence: without serious comorbidity Body mass index: BMI 35.0- 35.9 Qualified Code(s): E66.09 - Other obesity due to excess calories; Z68.35 - Body mass index [BMI] 35.0-35.9, adult (8) Depression, major, recurrent: Code(s): F33.9 - Major depressive disorder, recurrent, unspecified Category: Medical Qualifiers: Active/Remission status: in partial remission Qualified Code(s): F33.41 - Major depressive disorder, recurrent, in partial remission (9) Anxiety, generalized: Code(s): F41.1 - Generalized anxiety disorder Category: Medical (10) Environmental allergies: Code(s): Z91.09 - Other allergy status, other than to drugs and biological substances Category: Medical (11) Generalized hyperhidrosis: Code(s): R61 - Generalized hyperhidrosis Category: Medical Plan Patient Instructions - You will be referred to a kidney specialist (child care associate teacher) due to your recent lab results. - Please contact the specialist's office if you do not hear from them within a few days. - An ultrasound of your kidneys will be ordered, but this is not an urgent test. - Stop taking phentermine and Topamax for weight management. - A prescription for Vitamin B12 will be sent for you. - Do not take anti-inflammatory medications like ibuprofen or naproxen because of your kidney function. - You may take Tylenol for pain if needed. - Continue with your current diet and exercise routine. - Proceed with your scheduled mammogram in October. - Reschedule your appointment with the [facility]. - Schedule a follow-up appointment in about three months. Orders: Orders US renal BI Today R94.4 - Abnormal results of kidney function studies Referrals Nephrology Referral R94.4 - Abnormal results of kidney function studies
== END 2025-09-25 13:35 | disposition home or self-care (01) ==
LOC: HO.HMCC 13:11
PROVIDERS: PCP Internal Medicine; Visit Provider Internal Medicine
DX: Z00.01 Encounter for general adult medical examination with abnormal findings (principal); R94.4 Abnormal results of kidney function studies; I10 Essential (primary) hypertension; M79.7 Fibromyalgia; M54.50 Low back pain, unspecified; G89.29 Other chronic pain; N39.41 Urge incontinence; E66.09 Other obesity due to excess calories; Z68.35 Body mass index [BMI] 35.0-35.9, adult; F33.41 Major depressive disorder, recurrent, in partial remission; F41.1 Generalized anxiety disorder; Z91.09 Other allergy status, other than to drugs and biological substances; R61 Generalized hyperhidrosis

== ENCOUNTER 2025-10-09 12:53 | Outpatient (REF) | payer OTHER, SELFPAY ==
--- NOTE | ~2025-10-09 | US_ITS ---
EXAMINATION: US RETROPERITONEAL LIMITED (RENAL ONLY) CLINICAL INFORMATION: Abnormal renal function. COMPARISON: None available. TECHNIQUE: Real-time imaging of the kidneys. FINDINGS: RIGHT KIDNEY: 10 x 5 x 5.5 cm (SAG x AP x TRV). The kidney is normal in size, contour, and echogenicity. Renal cortical thickness is normal. No calculi or focal parenchymal lesions. No hydronephrosis. LEFT KIDNEY: 10.4 x 5.6 x 5.6 cm (SAG x AP x TRV). The kidney is normal in size, contour, and echogenicity. Probable hypertrophied column of Cristian. Renal cortical thickness is otherwise normal. No calculi. No hydronephrosis. US/US renal BI IMPRESSION: Probable hypertrophied column of Cristian in the left kidney. Otherwise unremarkable exam. Electronically signed by: Sally Jenkins MD 10/09/2025 01:35 PM [facility] [place]
== END 2025-10-09 12:54 | disposition home or self-care (01) ==
LOC: HO.US 12:53
PROVIDERS: Visit Provider Internal Medicine
DX: R94.4 Abnormal results of kidney function studies (principal)
CPT/HCPCS: 76775

== ENCOUNTER → 2025-10-09 12:57 | Outpatient (BNV) | payer OTHER, SELFPAY | PROVIDERS: Visit Provider Radiology Diagnostic Radiology | DX: R94.4 Abnormal results of kidney function studies (principal) | CPT/HCPCS: 76775 ==

== ENCOUNTER 2025-10-23 12:03 | Outpatient (AMB) | payer OTHER, SELFPAY ==
[2025-10-23 11:57] VITALS: BP 115/82; PULSE 65; O2SAT 100; BMI 30.8
--- NOTE | 2025-10-23 11:57 | HO.NEPHOV ---
Vital Signs 10/23/25 11:57 Height 5 ft 5 in Weight 185 lb 4 oz BMI 30.8 BP 115/82 Blood Pressure Location Lt brachial Position Sitting Pulse 65 Pulse Source Pulse Oximeter Pulse Oximetry (%) 100 Oxygen Delivery Method Room Air Intake Visit Reasons: INP: Abnormal results of kidney function studies Nurse Practitioner Required: No Accompanied by: Self / Same As Patient Allergies No Known Allergies Allergy (Verified 10/23/25 12:02) Patient : No Do you need a note to return to daycare/school/sports/work: No HPI Comments Details: 44-year-old lady with PMH of hypertension, migraine is here to establish care for CKD. 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 Hypertension: for about 2-3 years mostly diastolic; On atenolol 25 mg day. Had induced hypertension. [facility] Medical History Chronic lower back pain Depression, major, recurrent Anxiety, generalized Surgical History No pertinent past surgical history Family History Father HTN (hypertension) Diabetes mellitus Mother HTN (hypertension) Mental health disorder Maternal Grandmother Mental health disorder Social History Housing: House Patient Tobacco Use Status: Never used Tobacco e-Cigarette/Vaping Use: Never Used Patient : No service: No Current occupational status: employed Cognitive needs: No Hearing needs: No Vision needs: Yes (contacts) Review of Systems Const Details: Const : no body aches, no chills, no excessive sweating and no fatigue Eyes: no blurry vision and no change in vision ENT: no bleeding gums and no change in voice, no dizziness Card: no chest pain, no shortness of breath, no orthopnea, no PND Resp: no cough, no excessive phlegm production, no SOB GI: no abdominal pain and no nausea, no vomiting : no hematuria, no urinary frequency and no difficulty voiding Musc: no abnormal gait, no bone pain Neuro: no abnormal movements, no weakness, no dizziness Psych: no behavioral changes and no change in appetite Endo: no change in body appearance, no cold intolerance, no excessive sweating and no fatigue Physical Exam Vital Signs: Last Vital Signs BP 115/82 10/23/25 11:57 BMI result Body Mass Index 30.8 General: not in any acute distress, comfortable, sitting on the chair Nutritional Appearance: well nourished and weight Eyes: normal position, no icterus Neck: No lymphadenopathy, no thyromegaly Resp: bilateral air entry equal, no added sounds present Cardio: normal S1, S2 heard, no murmur heard, no edema GI: soft, nontender, no guarding, no hepatosplenomegaly : bladder normal to inspection, bladder normal to palpation, no renal angle tenderness Skin: no rashes or lesions noted and elasticity normal Neuro: oriented to person, oriented to place, oriented to time and moves all extremities Results Reviewed Nephrology Results: Hgb, (12.0-16.0) 13.6 g/dl 09/24/25 WBC, (4.8-10.8) 8.1 X10*3/uL 09/24/25 Plt Count, (160-400) 310 X10*3/uL 09/24/25 Sodium, (135-145) 141 mmol/L 09/24/25 Potassium, (3.3-5.1) 3.7 mmol/L 09/24/25 Chloride, (96-108) 112 mmol/L H 09/24/25 Carbon Dioxide, (22-29) 24 mmol/L 09/24/25 BUN, (9-16) 14 mg/dL 09/24/25 Creatinine, (0.5-1.4) 1.21 mg/dL 09/24/25 Calcium, (8.4-10.2) 8.4 mg/dL 09/24/25 Renal US 10/09/25 Assessment & Plan Assessment & Plan (1) CKD (chronic kidney disease): Code(s): N18.9 - Chronic kidney disease, unspecified Category: Medical (2) Hypertension: Code(s): I10 - Essential (primary) hypertension Category: Medical Plan Chronic kidney disease stage III : Needs evaluation - had family history of CKD- aunt (who was diabetic ); has a strong family history of heart disease, diabetes. - drinks organic green tea for a month or so. - no history of renal stones in the past, NSAID use. - creatinine 1.21 , GFR 49; it was 0.9-1 for a long time - we will get urine microalbumin creatinine ratio, UPCR, Urinalysis shows - renal ultrasound done in September 2025 showed right kidney 10 cm, left kidney 10.4 cm, no obstruction - avoid nephrotoxic medications not limited to NSAIDs, contrast etc. - importance of LPD protein about 0.6mg/kg/day, benefits of plant based diet, weight loss, adequate blood pressure control,well explained to patient. - lost about 30-40lbs of weight in the past year or so. - will get hepatitis panel, HIV, DEMI, ANCA Hypertension: - target blood pressures less than 130/90 mm Hg - controlled, currently on atenolol 25 This note is constructed using voice recognition software. While every effort has been made to ensure accuracy records administrator errors may have been included. Total time spent in the clinic is about 40 minutes, 10 minutes on chart review, review of data, 20 minutes on encounter, physical examination, counseling, answering all the questions, 10 minutes on documentation. Orders: Orders Basic Metabolic Panel Today I10 - Essential (primary) hypertension, N18.9 - Chronic kidney disease, unspecified UA and rflx microscopic Today I10 - Essential (primary) hypertension, N18.9 - Chronic kidney disease, unspecified Protein Creatinine Ratio, Ur Today I10 - Essential (primary) hypertension, N18.9 - Chronic kidney disease, unspecified Microalbumin, Random (w Creat) Today I10 - Essential (primary) hypertension, N18.9 - Chronic kidney disease, unspecified Hepatitis B,C Profile Today I10 - Essential (primary) hypertension, N18.9 - Chronic kidney disease, unspecified HIV Ab/Ag Today I10 - Essential (primary) hypertension, N18.9 - Chronic kidney disease, unspecified DEMI Reflex Titer and Pattern Today I10 - Essential (primary) hypertension, N18.9 - Chronic kidney disease, unspecified ANCA Vasculitides Today I10 - Essential (primary) hypertension, N18.9 - Chronic kidney disease, unspecified Coding Level of Care Code New Pt Level 4 (37323) Diagnoses CKD (chronic kidney disease) N18.9 Hypertension I10
== END 2025-10-23 12:37 | disposition home or self-care (01) ==
LOC: HO.HKA 12:03
PROVIDERS: PCP Internal Medicine; Referring Provider Internal Medicine; Visit Provider Internal Medicine Critical Care Medicine
DX: I12.9 Hypertensive chronic kidney disease with stage 1 through stage 4 chronic kidney disease, or unspecified chronic kidney disease (principal); N18.9 Chronic kidney disease, unspecified
CPT/HCPCS: 99204

== ENCOUNTER 2025-10-23 12:03 | Outpatient (REF) | payer OTHER, SELFPAY ==
[2025-10-23 13:47] LABS: Appearance Urine Clear; Glucose Urine UA Negative (Negative); PH 6.0 (5.0-9.0); Specific Gravity - Urine 1.015 (1.005-1.025); UMIC TRIGGER UA YES
[2025-10-23 13:53] LABS: Anion Gap 9 (12-20); Blood Urea Nitrogen 9 mg/dL (9-16); Calcium 8.5 mg/dL (8.4-10.2); Carbon Dioxide 28 mmol/L (22-29); Chloride 110 mmol/L (96-108); Estimated Glomerular Filt Rate 58; Microalbum/Creatinine Ratio Ur 3.7 ug/mg cr (<30); Potassium 3.9 mmol/L (3.3-5.1); Protein/Creatinine Ratio, Ur 0.07 (<0.2); Sodium 143 mmol/L (135-145); Total Protein Urine Random 15 mg/dL (<12)
[2025-10-24 03:50] LABS: HBS Num1 25.44 mIU/mL (0-7.99); HBc Num1 0.15 S/CO (0.00-0.79); HBsAGNum1 0.37 S/CO (0.00-0.99); HIV Num 1 0.06 S/CO (0.00-0.99); Hepatitis B Surface Antigen Negative (Negative); ~HepC Num1 0.12 S/CO (0.00-0.79); ~Hepatitis B Surface Antibody REACTIVE (Nonreactive); ~Hepatitis C Antibody Nonreactive (Nonreactive)
[2025-10-24 11:03] LABS: Anti Nuclear Antibody Screen NEGATIVE (NEGATIVE)
[2025-10-24 20:38] LABS: Proteinase 3 PR3 Antibodies <1.0 AI
== END 2025-10-23 12:04 | disposition home or self-care (01) ==
LOC: HO.10HDL 12:03
PROVIDERS: PCP Internal Medicine; Referring Provider Internal Medicine; Visit Provider Internal Medicine Critical Care Medicine
DX: I12.9 Hypertensive chronic kidney disease with stage 1 through stage 4 chronic kidney disease, or unspecified chronic kidney disease (principal); N18.9 Chronic kidney disease, unspecified; Z11.4 Encounter for screening for human immunodeficiency virus [HIV]; Z01.84 Encounter for antibody response examination
CPT/HCPCS: 36415; 80048; 81001; 82043; 82570; 84156; 86021; 86038; 86704; 86706; 86803; 87340; 87389